=== PATIENT | female | born 1945 | race African-American/Black ===

== ENCOUNTER 2016-06-25 04:43 | Observation (INO) | payer MEDICARE, OTHER ==
[2016-06-25] VITALS (7 sets, daily range): BP systolic 125–160; BP diastolic 65–93; PULSE 60–97; RESP 16–20; TEMP 97.9–98.6; O2SAT 96–99
[~2016-06-25] VITALS: Ht 170.2 cm; Wt 100.0 kg
[~2016-06-25 04:43] MED LIST: 1-ME1LIQ PO; DICL75 PO; FURO1TAB93 PO; GABA600T PO; HYDR-3533 PO; IBUP800 PO; PERC5TAB12 PO; POTA1TAB4 PO; REST30CA PO; SIMV40 PO; TYLE3 PO
[2016-06-25] MEDS ORDERED: REST30CA PO (05:02)
[2016-06-25] MEDS ORDERED: GABA600T PO (05:02)
[2016-06-25] MEDS ORDERED: FURO1TAB60 PO (05:02)
[2016-06-25] MEDS ORDERED: SIMV40TA PO (05:02)
[2016-06-25] MEDS ORDERED: ACET300T2 PO (05:02)
[2016-06-25] MEDS ORDERED: POTA1TAB4 PO (05:02)
[2016-06-25] MEDS ORDERED: predniSONE 20 MG TAB PO ONE (05:45)
[2016-06-25] MEDS ORDERED: SODIUM CHLORIDE 0.9% FLUSH 10 ML FLUSH IV FLUSH PRN ×2 (05:45→09:30)
[2016-06-25] MEDS ORDERED: diphenhydrAMINE HCL 50 MG/ML VIAL IVP ONE (05:45)
[2016-06-25] MEDS ORDERED: FAMOTIDINE 20 MG/2 ML VIAL IV PUSH ONE (05:45)
--- NOTE | 2016-06-25 05:49 | PD ---
HPI Chief Complaint: Allergic/Adverse Reaction Time Seen by Provider: 05:43 Travel History International Travel<30 days: No Contact w/Intl Traveler<30days: No Traveled to known affect area: No History of Present Illness HPI 71yo F with PMH of breast CA s/p chemo and follows with Dr. Reed presents to the ED with periorbital swelling for 2 days. States prior to that, she spray febreeze in the room and thinks the febreeze touched her face. States rash started in her face day after and it is more itchy than painful. Denies any fever, tongue or lip swelling, chest pain, sob, n/v, abdominal pain, focal weakness or numbness. PFSH Past Medical History Asthma: Yes Cancer: Yes ( BREAST CANCER) Cardiovascular Problems: Yes Chemotherapy: Yes Diabetes: No Diminished Hearing: No Endocrine: No Gastrointestinal Disorders: Yes (REFLUX) Genitourinary: No Hepatitis: No Hiatal Hernia: No Hypertension: Yes Immune Disorder: No Musculoskeletal: Yes Neurologic: No Psychiatric: No Reproductive: No Respiratory: Yes (ASTHMA) Thyroid Disease: No Past Surgical History Abdominal Surgery: Yes (HYSTERECTOMY) AICD: No Ear Surgery: No Endocrine Surgery: No Eye Surgery: Yes (CATARACTS) Genitourinary Surgery: No Gynecologic Surgery: No Joint Replacement: No Mastectomy: Yes (BILAT) Neurologic Surgery: No Oral Surgery: No Pacemaker: No Thoracic Surgery: Yes (BILATERAL MASECTOMY) Other Surgery: Yes Social History Alcohol Use: No Tobacco Use: No (quit 2010) Substance Use: No Allergies-Medications (Allergen,Severity, Reaction): Coded Allergies: EDGARD Inhibitors (Verified Allergy, Severe, 06/25/16) Angioedema Levaquin (Verified Allergy, Unknown, 06/25/16) Penicillin (Verified Allergy, Unknown, 06/25/16) Percocet (Verified Allergy, Unknown, HIVES, 06/25/16) Uncoded Allergies: quinolon (Allergy, Unknown, 05/11/15) Reported Meds & Prescriptions Reported Meds & Active Scripts Active Reported Restoril (Temazepam) 30 Mg Cap 30 Mg PO HS PRN Simvastatin 40 Mg Tab 40 Mg PO HS K-Tab (Potassium Chloride) 20 Meq Tab 20 Meq PO DAILY Gabapentin 600 Mg Tab 600 Mg PO BID Lasix (Furosemide) 40 Mg Tab 40 Mg PO DAILY Acetaminophen-Codeine 300-30 mg Tab 1 Tab PO Q4H PRN Review of Systems Except as stated in HPI: all other systems reviewed are Neg Physical Exam Narrative GENERAL: 71yo F not in distress. FACE: +Edema to right face. Dry, scaling rash that looks like desquamation on right face and chin. There is also clear discharge, weeping. HEAD: Atraumatic. Normocephalic. EYES: Periorbital edema. No erythema. Right pupil cataract surgery. Left pupil reactive to light. EOMI. No pain with eye movement. ENT: Mouth: No oral mucosa. Uvula midline and not edematous. NECK: Trachea midline. No JVD. CARDIOVASCULAR: Regular rate and rhythm. No murmur appreciated. RESPIRATORY: No accessory muscle use. Clear to auscultation. Breath sounds equal bilaterally. GASTROINTESTINAL: Abdomen soft, non-tender, nondistended. MUSCULOSKELETAL: No obvious deformities. No clubbing. No cyanosis. No edema. NEUROLOGICAL: Awake and alert. No obvious cranial nerve deficits. Motor grossly within normal limits. Normal speech. PSYCHIATRIC: Appropriate mood and affect; insight and judgment normal. Data Data Last Documented VS Vital Signs Date Time Temp Pulse Resp B/P Pulse Ox O2 Delivery O2 Flow Rate FiO2 06/25/16 07:00 65 16 160/77 96 Room Air 06/25/16 04:47 98.1 Orders Basic Metabolic Panel (Bmp) (06/25/16 05:43) Complete Blood Count With Diff (06/25/16 05:43) Diphenhydramine Inj (Benadryl Inj) (06/25/16 05:45) Prednisone (Deltasone) (06/25/16 05:45) Famotidine Inj (Pepcid Inj) (06/25/16 05:45) Sodium Chloride 0.9% Flush (Ns Flush) (06/25/16 05:45) Clindamycin Inj (Cleocin Inj) (06/25/16 07:15) Blood Culture (06/25/16 07:04) Sodium Chlorid 0.9% 500 Ml Inj (Ns 500 M (06/25/16 07:45) Admit Order (Ed Use Only) (06/25/16 07:37) Labs Laboratory Tests Test 06/25/16 06/25/16 05:43 05:55 White Blood Count 6.6 TH/MM3 Red Blood Count 3.45 MIL/MM3 Hemoglobin 9.4 GM/DL Hematocrit 28.8 % Mean Corpuscular Volume 83.5 FL Mean Corpuscular Hemoglobin 27.4 PG Mean Corpuscular Hemoglobin 32.8 % Concent Red Cell Distribution Width 18.8 % Platelet Count 450 TH/MM3 Mean Platelet Volume 7.3 FL Neutrophils (%) (Auto) 38.4 % Lymphocytes (%) (Auto) 37.8 % Monocytes (%) (Auto) 16.0 % Eosinophils (%) (Auto) 6.2 % Basophils (%) (Auto) 1.6 % Neutrophils # (Auto) 2.6 TH/MM3 Lymphocytes # (Auto) 2.5 TH/MM3 Monocytes # (Auto) 1.1 TH/MM3 Eosinophils # (Auto) 0.4 TH/MM3 Basophils # (Auto) 0.1 TH/MM3 CBC Comment AUTO DIFF Differential Comment AUTO DIFF CONFIRMED Target Cells 1+ Tear Drop Cells 1+ Ovalocytes 1+ Sodium Level 128 MEQ/L Potassium Level 4.3 MEQ/L Chloride Level 96 MEQ/L Carbon Dioxide Level 25.6 MEQ/L Anion Gap 6 MEQ/L Blood Urea Nitrogen 15 MG/DL Creatinine 0.94 MG/DL Estimat Glomerular Filtration 71 ML/MIN Rate Random Glucose 83 MG/DL Calcium Level 9.3 MG/DL [facility] Medical Decision Making Medical Screen Exam Complete: Yes Emergency Medical Condition: Yes Interpretation(s) Laboratory Tests Test 06/25/16 06/25/16 05:43 05:55 White Blood Count 6.6 TH/MM3 (4.0-11.0) Red Blood Count 3.45 MIL/MM3 (4.00-5.30) Hemoglobin 9.4 GM/DL (11.6-15.3) Hematocrit 28.8 % (35.0-46.0) Mean Corpuscular Volume 83.5 FL (80.0-100.0) Mean Corpuscular Hemoglobin 27.4 PG (27.0-34.0) Mean Corpuscular Hemoglobin 32.8 % Concent (32.0-36.0) Red Cell Distribution Width 18.8 % (11.6-17.2) Platelet Count 450 TH/MM3 (150-450) Mean Platelet Volume 7.3 FL (7.0-11.0) Neutrophils (%) (Auto) 38.4 % (16.0-70.0) Lymphocytes (%) (Auto) 37.8 % (9.0-44.0) Monocytes (%) (Auto) 16.0 % (0.0-8.0) Eosinophils (%) (Auto) 6.2 % (0.0-4.0) Basophils (%) (Auto) 1.6 % (0.0-2.0) Neutrophils # (Auto) 2.6 TH/MM3 (1.8-7.7) Lymphocytes # (Auto) 2.5 TH/MM3 (1.0-4.8) Monocytes # (Auto) 1.1 TH/MM3 (0-0.9) Eosinophils # (Auto) 0.4 TH/MM3 (0-0.4) Basophils # (Auto) 0.1 TH/MM3 (0-0.2) CBC Comment AUTO DIFF Differential Comment AUTO DIFF CONFIRMED Target Cells 1+ (NORMAL) Tear Drop Cells 1+ (NORMAL) Ovalocytes 1+ (NORMAL) Sodium Level 128 MEQ/L (136-145) Potassium Level 4.3 MEQ/L (3.5-5.1) Chloride Level 96 MEQ/L (98-107) Carbon Dioxide Level 25.6 MEQ/L (21.0-32.0) Anion Gap 6 MEQ/L (5-15) Blood Urea Nitrogen 15 MG/DL (7-18) Creatinine 0.94 MG/DL (0.50-1.00) Estimat Glomerular Filtration 71 ML/MIN (>89) Rate Random Glucose 83 MG/DL (74-106) Calcium Level 9.3 MG/DL (8.5-10.1) Differential Diagnosis Allergic reaction vs. cellulitis vs. atopic dermatitis Narrative Course 71yo with breast CA last chemo april here with right face and periorbital swelling. The periorbital swelling seems like an allergic reaction but there is some pain in right face and that may be infectious. Labs reviewed, no leukocytosis. H/H baseline. Mild hyponatremia at 128. Pt given NS IVF. Pt given diphenhydramine, prednisone, famotidine. Will cover pt with clindamycin. Pt reevaluated at bedside. Feels sleeping. Pt's face is still weeping with clear discharge and I feel that observation is indicated given how extensive the swelling is. Discussed with Dr. Villarreal and accepted to her service. Diagnosis Primary Impression: Cellulitis Qualified Code: L03.211 - Cellulitis of face Admitting Information Admitting Physician Requests: Observation Pamela Josue DO Jun 25, 2016 05:49 Pamela Josue DO Jun 25, 2016 05:49
[2016-06-25 06:05] LABS: AUTOMATED NEUTROPHIL # 2.6 TH/MM3 (1.8-7.7); BASOPHIL # 0.1 TH/MM3 (0-0.2); BASOPHIL % 1.6 % (0.0-2.0); EOSINOPHIL # 0.4 TH/MM3 (0-0.4); EOSINOPHIL % 6.2 % (0.0-4.0); HEMATOCRIT 28.8 % (35.0-46.0); LYMPH % 37.8 % (9.0-44.0); LYMPHOCYTE # 2.5 TH/MM3 (1.0-4.8); MEAN CELL VOLUME 83.5 FL (80.0-100.0); MEAN CORPUSCULAR HEMOGLOBIN 27.4 PG (27.0-34.0); MEAN CORPUSCULAR HGB CONC 32.8 % (32.0-36.0); NEUT % 38.4 % (16.0-70.0); PLATELET COUNT 450 TH/MM3 (150-450); RED BLOOD COUNT 3.45 MIL/MM3 (4.00-5.30); RED CELL DISTRIBUTION WIDTH 18.8 % (11.6-17.2); WHITE BLOOD COUNT 6.6 TH/MM3 (4.0-11.0)
[2016-06-25 06:18] LABS: HEMO FLAGS AUTO DIFF
[2016-06-25 06:25] LABS: BICARBONATE 25.6 MEQ/L (21.0-32.0); POTASSIUM 4.3 MEQ/L (3.5-5.1)
[2016-06-25 07:06] LABS: OVALOCYTES 1+ (NORMAL); SCAN/DIFF AUTO DIFF CONFIRMED; TARGET CELLS 1+ (NORMAL); TEARDROP RBCS 1+ (NORMAL)
[2016-06-25] MEDS ORDERED: CLINDAMYCIN INJ 600 MG in SODIUM CHLORIDE 0.9% INJ 100 ML IV ONE (07:15)
[2016-06-25] MEDS ORDERED: SODIUM CHLORID 0.9% 500 ML INJ 500 ML IV ONE (07:45)
[2016-06-25] MEDS ORDERED: PROCHLORPERAZINE 25 MG SUPP RECTAL PRN (09:30)
[2016-06-25] MEDS ORDERED: ONDANSETRON HCL 4 MG/2 ML VIAL IVP PRN (09:30)
[2016-06-25] MEDS ORDERED: ACETAMINOPHEN 325 MG TAB PO PRN (09:30)
[2016-06-25] MEDS ORDERED: TEMAZEPAM 15 MG CAP PO PRN (09:30)
[2016-06-25] MEDS ORDERED: TEMAZEPAM 30 MG PO PRN (09:30)
[2016-06-25] MEDS ORDERED: NALOXONE HCL 0.4 MG/ML AMP IV PRN (09:30)
[2016-06-25] MEDS: DOCUSATE SODIUM 100 MG CAP PO SCH ×2 (09:58→20:30)
[2016-06-25] MEDS: POTASSIUM CHLORIDE 20 MEQ CONTROLLED RELEASE TAB PO SCH (09:58)
[2016-06-25] MEDS: FUROSEMIDE 40 MG TAB PO SCH (09:58)
[2016-06-25] MEDS: SODIUM CHLOR 0.45% 1000 ML INJ 1,000 ML IV SCH (09:59)
[2016-06-25] MEDS: CLINDAMYCIN INJ 600 MG in SODIUM CHLORIDE 0.9% INJ 100 ML IV SCH ×3 (10:00→22:28)
[2016-06-25] MEDS: ENOXAPARIN SODIUM 40 MG/0.4 ML SYRINGE SQ SCH (10:05)
--- NOTE | 2016-06-25 11:47 | MH ---
DATE OF ADMISSION: 06/25/2016 ATTENDING PHYSICIAN: Cecy Villarreal MD CHIEF COMPLAINT: Swelling of the right side of the face. HISTORY OF PRESENT ILLNESS: The patient is a very pleasant 71-year-old -[place] female who presented to the emergency room with acute swelling of the right side of the face. Per aptient she had scratched her face few hours ago before and then she started noticing that the right side of her face has been gradually swelling and also has started oozing. She denies any shortness of breath. No chest pain. No blurring of vision. No wheezing. The patient does have a history of breast cancer for which she is under the care of Dr. Reed. Per patient, the rash is very itchy and painful. PAST MEDICAL HISTORY: Her past medical history is significant for: 1. Breast cancer. 2. Acid reflux. 3. Coronary artery disease. 4. Hypertension. 5. Asthma. PAST SURGICAL HISTORY: 1. Hysterectomy. 2. Cataract surgery. 3. Bilateral mastectomy. ALLERGIES: 1. EDGARD INHIBITORS. 2. LEVAQUIN. 3. PENICILLIN. 4. PERCOCET. SOCIAL HISTORY: Quit smoking in 2010. Denies alcohol or tobacco use. FAMILY HISTORY: Significant for hypertension and coronary artery disease. ACTIVE MEDICATIONS: 1. Temazepam. 2. Simvastatin. 3. Potassium chloride. 4. Gabapentin. 5. Furosemide. 6. Acetaminophen / codeine. REVIEW OF SYSTEMS: GENERAL: Denies any weakness. RESPIRATORY: Denies any shortness of breath or wheezing. CARDIOVASCULAR: Denies any chest pain or palpitations. GASTROINTESTINAL: Denies any abdominal pain, nausea or vomiting, or diarrhea. MUSCULOSKELETAL: No arthralgias. ENDOCRINE: No diabetes. NEUROLOGICAL: No seizures. PHYSICAL EXAMINATION: GENERAL: A 71-year-old female in no acute distress lying in bed comfortably. VITAL SIGNS: Blood pressure is 160/74, temperature is 98.1, pulse is 97, respirations are 16, pulse oximetry is 98% on room air. HEAD, EYES, EARS, NOSE, THROAT: Face with 2+ edema to the right face. Dry scaling rash that looks like desquamation on the right face and chin. There is also a clear discharge weeping. Head is normocephalic and atraumatic. Pupils are equal, round and reactive to light and accommodation. Extraocular movements are intact. No pain with eye movement. Oral mucosa is moist. Uvula is midline. Not edematous. Trachea is midline. NECK: No jugular venous distention. CARDIOVASCULAR: S1 and S2 heard. Regular rate and rhythm. No murmur. No gallop. RESPIRATORY: Lungs are clear to auscultation bilaterally. No rhonchi or wheezes. GASTROINTESTINAL: The abdomen is soft, nontender and nondistended. Bowel sounds heard in all the four quadrants. MUSCULOSKELETAL: No obvious deformities. No cyanosis, clubbing or edema. NEUROLOGICAL: The patient is awake and alert. No obvious cranial nerve deficits. PSYCHIATRIC: Appropriate mood and affect, insight and judgment normal. LABORATORY DATA: Labs done show a white blood cell count of 6.6, hemoglobin 9.4, hematocrit 28.8, platelet count 450,000. Potassium 4.3, sodium is 128. DIAGNOSTIC IMPRESSION: 1. Facial swelling, right side. Allergic reaction versus cellulitis versus atopic dermatitis. 2. Hyponatremia. 3. Hypertension. 4. History of breast cancer. PLAN: 1. Will admit the patient under observation. 2. Start the patient on IV fluids. 3. Start the patient on clindamycin. 4. Start the patient on Solu-Medrol. 5. Start the patient on Benadryl for itching. 6. Will continue the home medications as appropriate. 7. Monitor labs/vitals closely. Further management depends upon the hospital course. Will monitor the patient closely during the hospital stay. IVANIA
[2016-06-25] MEDS: ACETAMINOPHEN/CODEINE 300 MG/30 MG TAB PO PRN (12:26)
[2016-06-25] MEDS: diphenhydrAMINE HCL 25 MG CAP PO PRN (16:37)
[2016-06-25] MEDS: GABAPENTIN 300 MG CAP PO SCH (20:30)
[2016-06-25] MEDS: methylPREDNISolone SOD SUCC 125 MG/2 ML VIAL IV PUSH SCH (20:30)
[2016-06-25] MEDS: SODIUM CHLORIDE 0.9% FLUSH 10 ML FLUSH IV FLUSH SCH (20:31)
[2016-06-25] MEDS: FAMOTIDINE 20 MG/2 ML VIAL IV PUSH SCH (20:45)
[2016-06-25] MEDS ORDERED: PRAVASTATIN SOD 80 MG TAB PO SCH (21:00)
[2016-06-26] VITALS: BP 148/67; PULSE 66; RESP 19; TEMP 98.3; O2SAT 99
[2016-06-26 04:00] VITALS: BP 162/67; PULSE 63; RESP 17; TEMP 98.2; O2SAT 98
[2016-06-26] MEDS: SODIUM CHLOR 0.45% 1000 ML INJ 1,000 ML IV SCH ×2 (04:51→12:00)
[2016-06-26] MEDS: CLINDAMYCIN INJ 600 MG in SODIUM CHLORIDE 0.9% INJ 100 ML IV SCH ×2 (04:51→10:00)
[2016-06-26] MEDS: ACETAMINOPHEN/CODEINE 300 MG/30 MG TAB PO PRN ×2 (06:44→06:48)
[2016-06-26] MEDS: FAMOTIDINE 20 MG/2 ML VIAL IV PUSH SCH (06:44)
[2016-06-26 06:46] LABS: AUTOMATED NEUTROPHIL # 3.9 TH/MM3 (1.8-7.7); BASOPHIL % 0.5 % (0.0-2.0); HEMATOCRIT 29.3 % (35.0-46.0); HEMO FLAGS DIFF FINAL; LYMPH % 24.8 % (9.0-44.0); LYMPHOCYTE # 1.4 TH/MM3 (1.0-4.8); MEAN CELL VOLUME 83.9 FL (80.0-100.0); MEAN CORPUSCULAR HEMOGLOBIN 27.3 PG (27.0-34.0); MEAN CORPUSCULAR HGB CONC 32.6 % (32.0-36.0); MONO % 6.2 % (0.0-8.0); NEUT % 68.5 % (16.0-70.0); PLATELET COUNT 431 TH/MM3 (150-450); RED BLOOD COUNT 3.49 MIL/MM3 (4.00-5.30); RED CELL DISTRIBUTION WIDTH 18.5 % (11.6-17.2); WHITE BLOOD COUNT 5.7 TH/MM3 (4.0-11.0)
[2016-06-26 07:09] LABS: BICARBONATE 24.4 MEQ/L (21.0-32.0); POTASSIUM 3.6 MEQ/L (3.5-5.1)
[2016-06-26] MEDS: diphenhydrAMINE HCL 25 MG CAP PO PRN (07:39)
[2016-06-26 07:40] VITALS: BP 145/63; PULSE 75; RESP 16; TEMP 98; O2SAT 100
[2016-06-26] MEDS: FUROSEMIDE 40 MG TAB PO SCH (08:31)
[2016-06-26] MEDS: POTASSIUM CHLORIDE 20 MEQ CONTROLLED RELEASE TAB PO SCH (08:31)
[2016-06-26] MEDS: methylPREDNISolone SOD SUCC 125 MG/2 ML VIAL IV PUSH SCH (08:32)
[2016-06-26] MEDS: GABAPENTIN 300 MG CAP PO SCH (08:34)
[2016-06-26] MEDS: DOCUSATE SODIUM 100 MG CAP PO SCH (08:35)
[2016-06-26] MEDS: SODIUM CHLORIDE 0.9% FLUSH 10 ML FLUSH IV FLUSH SCH (08:35)
[2016-06-26] MEDS: ENOXAPARIN SODIUM 40 MG/0.4 ML SYRINGE SQ SCH (10:00)
--- NOTE | 2016-06-26 10:38 | HHI.PR ---
Subjective Remarks 71yr old female seen and examined today. Decreased right side facial swelling. no cp/sob/nvd/fever. Patient wants to go home. Objective Objective Results - Vital Signs Date Time Temp Pulse Resp B/P Pulse Ox O2 Delivery O2 Flow Rate FiO2 06/26/16 07:40 98.0 75 16 145/63 100 06/26/16 04:00 98.2 63 17 162/67 98 06/26/16 00:00 98.3 66 19 148/67 99 06/25/16 20:00 98.6 72 20 125/65 98 06/25/16 15:38 97.9 70 16 141/69 99 06/25/16 12:01 97.9 60 18 160/78 98 06/25/16 11:11 66 16 154/79 98 Room Air I/O 06/25/16 06/25/16 06/25/16 06/26/16 06/26/16 06/26/16 07:00 15:00 23:00 07:00 15:00 23:00 Intake Total 240 ml Balance 240 ml Intake Oral 240 ml # Voids 1 1 # Bowel Movements 1 Result Diagram: 06/26/16 0620 06/26/16 0620 Other Results Laboratory Tests Test 06/26/16 06:20 White Blood Count 5.7 Red Blood Count 3.49 Hemoglobin 9.5 Hematocrit 29.3 Mean Corpuscular Volume 83.9 Mean Corpuscular Hemoglobin 27.3 Mean Corpuscular Hemoglobin 32.6 Concent Red Cell Distribution Width 18.5 Platelet Count 431 Mean Platelet Volume 7.0 Neutrophils (%) (Auto) 68.5 Lymphocytes (%) (Auto) 24.8 Monocytes (%) (Auto) 6.2 Eosinophils (%) (Auto) 0.0 Basophils (%) (Auto) 0.5 Neutrophils # (Auto) 3.9 Lymphocytes # (Auto) 1.4 Monocytes # (Auto) 0.3 Eosinophils # (Auto) 0.0 Basophils # (Auto) 0.0 CBC Comment DIFF FINAL Differential Comment Sodium Level 140 Potassium Level 3.6 Chloride Level 109 Carbon Dioxide Level 24.4 Anion Gap 7 Blood Urea Nitrogen 13 Creatinine 0.66 Estimat Glomerular Filtration 107 Rate Random Glucose 123 Calcium Level 9.0 Date/Time Procedure Status Source Growth 06/25/16 07:35 Aerobic Blood Culture Received Blood Peripheral Pending 06/25/16 07:35 Anaerobic Blood Culture Received Blood Peripheral Pending ROS General: No: Fatigue, Weakness, Other HEENT: No: Sore Throat, Dysphagia, Other Cardiac: No: Chest Pain, Edema, Palpitations, Other Pulmonary: No: Cough, SOB, Wheezing, Other GI: No: Abdominal Pain, BM, Diarrhea, N/V, Other /TRIBAL DELEGATE: No: Dysuria, Urgency, Other Neuro/MS: No: Lightheaded, Confusion, Other Psych: No: Anxiety, Depression, Other Skin: Itching, Rash, Other (right side facial swelling.) Physical Exam Physical Exam PHYSICAL EXAMINATION GENERAL: This is a well-developed, well-nourished female who appears to be in no acute distress. She is alert and awake. HEAD: Normocephalic without any lesion or mass noted. Facial features appear symmetric. EYES: Perrla, Normal eye movement, no icterus. OROPHARYNGEAL: Oropharynx without erythema or edema. MOUTH/THROAT: Tongue midline Buccal mucosa is moist NECK: Supple. CARDIAC: Regular rhythm, regular rate, S1 and S2 are heard. LUNGS: Clear to auscultation bilaterally. ABDOMEN: Soft, nontender, no organomegaly or masses. Bowel sounds are heard in all four quadrants. No rebound. No guarding. EXTREMITIES: No CCE. NEUROLOGICAL: Patient mood and affect appropriate. SKIN: Swelling on right side of face: PSYCH: Mood and affect appropriate A/P Assessment and Plan Assessment/plan: 1. Facial swelling, right side. Allergic reaction versus cellulitis versus atopic dermatitis. 2. Hyponatremia. 3. Hypertension. 4. History of breast cancer. PLAN: Clindamycin/steroids/benadryl. Patient is doing better. Right side facial swelling is improving. Will dc to home today on po abx/steroids. Follow-up with pcp in 1 week. Cecy Villarreal MD Jun 26, 2016 10:38
[2016-06-26 11:15] VITALS: BP 166/71; PULSE 60; RESP 16; TEMP 98; O2SAT 97
[2016-06-26] MEDS ORDERED: PRED10PA PO (11:15)
[2016-06-26] MEDS ORDERED: CLIN1CAP6 PO (11:15)
[2016-06-26] MEDS ORDERED: TRIAM.1%T TOPICAL (11:16)
--- NOTE | 2016-07-31 20:55 | MD ---
cc: THUY BURKETT MD ADMISSION DATE: 06/25/2016 DISCHARGE DATE: 06/26/2016 cc: THUY BURKETT MD DATE OF 1945 DATE OF ADMISSION 06/25/2016 DATE OF DISCHARGE 06/26/[address] Thuy Burkett ADMISSION DIAGNOSES 1. Right facial swelling. 2. Right facial cellulitis. 3. Hyponatremia. 4. Hypertension. 5. History of breast cancer. DISCHARGE DIAGNOSES 1. Cellulitis of right side of the face. 2. Allergic reaction. 3. Hyponatremia. 4. Hypertension. 5. History of breast cancer. HOSPITAL COURSE The patient is a very pleasant 71-year-old -[place] female who presented to the ER with acute swelling of the right side of the face on 06/25/2016. Per the patient she had scratched her face a few hours ago before presentation to the ER and then she noticed that the right side of the face had been gradually swelling and also had started oozing. The patient denied any shortness of breath or dysphagia. Denied any chest pain or palpitations. Denies any blurred vision or weakness. The patient does have a history of breast cancer for which she is under the of Dr. Reed. Per the patient the rash is very itchy and painful. PHYSICAL EXAMINATION HEENT: On examination the patient was noted to have 2+ edema to the right side of the face, dry scaly rash that looks like desquamation on the right face and chin. There was also a clear discharge weeping. The pupils were equal, round and reactive to light. Extraocular movements were intact. Oral mucosa was moist. Uvula was midline. There was no edema noted and trachea was midline. Because of her symptomatology the patient was admitted under observation status. She was started on IV fluids. She was started on Clindamycin and Solu-Medrol. Was given Benadryl for itching. Her home medications were continued as appropriate. LABORATORY DATA Labs done on 06/25/2016 showed WBC of 6.6, hemoglobin of 9.4, hematocrit 28.8, platelets were 450,000. CBC was repeated again on 06/26/2016 which showed a hemoglobin of 9.5, hematocrit 29.3 and platelets were 431,000. Potassium was 3.6, BUN was 13 and creatinine was 0.66. Her sodium on 06/25/2016 was 128 as it was replaced with IV fluids on 06/26/2016 it was 140. On 06/26/2016 the patient was reexamined. The swelling on the right side of the face was decreased. She was asymptomatic. Her blood pressure was 145/63, pulse oximetry 100%. Respiratory rate 16. Pulse was 75. Temperature was 98. As the patient was clinically and hemodynamically stable, she was discharged home. DISCHARGE CONDITION Stable. DISCHARGE DISPOSITION Home. DISCHARGE MEDICATIONS 1. Clindamycin 300 milligrams p.o. q.6h, #28. 2. Medrol Dosepak 10 milligrams erika, #1. Use as directed. 3. Triamcinolone topical cream 0.1% ointment apply to the affected area twice a day for 14 days. Continue medications: 1. Tylenol No. 3. 2. Lasix. 3. Gabapentin. 4. Potassium chloride. 5. Simvastatin. 6. Temazepam. DISCHARGE FOLLOWUP Follow up with primary care physician in one week. Thuy Burkett MD SR/TONY /7:59 PM /8:33 PM Thuy Burkett MD SR/TONY /7:59 PM /8:33 PM
== END 2016-06-26 12:43 | disposition home or self-care (01) ==
LOC: NEPC 04:43 → NEDA 07:39 → NEPGCP 11:31
PROVIDERS: ADMIT Family Medicine; ATTEND Family Medicine
DX: R22.0 Localized swelling, mass and lump, head (principal); E87.1 Hypo-osmolality and hyponatremia; I10 Essential (primary) hypertension; C50.919 Malignant neoplasm of unspecified site of unspecified female breast; I25.10 Atherosclerotic heart disease of native coronary artery without angina pectoris; J45.909 Unspecified asthma, uncomplicated; K21.9 Gastro-esophageal reflux disease without esophagitis; Z90.13 Acquired absence of bilateral breasts and nipples; Z92.21 Personal history of antineoplastic chemotherapy; Z87.891 Personal history of nicotine dependence; Z88.1 Allergy status to other antibiotic agents; Z88.5 Allergy status to narcotic agent; Z88.0 Allergy status to penicillin; Z88.8 Allergy status to other drugs, medicaments and biological substances
CPT/HCPCS: 80048; 85025; 87040; 96374; 96375; 99284; G0378; J1200; J1650; J2930; J7040; J7512

== ENCOUNTER → 2016-08-04 | Outpatient (CLI) | payer MEDICARE, OTHER ==
[~2016-08-04] MED LIST changes: -1-ME1LIQ PO; +ACET300T2 PO; +CLIN1CAP6 PO; -DICL75 PO; +FURO1TAB60 PO; -FURO1TAB93 PO; -HYDR-3533 PO; -IBUP800 PO; -PERC5TAB12 PO; +PRED10PA PO; -SIMV40 PO; +SIMV40TA PO; +TRIAM.1%T TOPICAL; -TYLE3 PO
[2016-08-04 09:54] LABS: HEMATOCRIT 32.9 % (35.0-46.0); MEAN CELL VOLUME 83.5 FL (80.0-100.0); MEAN CORPUSCULAR HEMOGLOBIN 28.2 PG (27.0-34.0); MEAN CORPUSCULAR HGB CONC 33.7 % (32.0-36.0); PLATELET COUNT 385 TH/MM3 (150-450); RED BLOOD COUNT 3.94 MIL/MM3 (4.00-5.30); RED CELL DISTRIBUTION WIDTH 16.7 % (11.6-17.2); REVIEW FLAG FINAL; WHITE BLOOD COUNT 6.4 TH/MM3 (4.0-11.0)
[2016-08-04 10:17] LABS: ANION GAP 8 MEQ/L (5-15); AST (GOT) 19 U/L (15-37); BICARBONATE 25.8 MEQ/L (21.0-32.0); BLOOD UREA NITROGEN 11 MG/DL (7-18); CHLORIDE 103 MEQ/L (98-107); GLOMERULAR FILTRATION RATE 75 ML/MIN (>89); GLUCOSE,FASTING 86 MG/DL (74-99); SODIUM (NA) 137 MEQ/L (136-145)
[2016-08-04 10:21] LABS: ALKALINE PHOSPHATASE 195 U/L (45-117); ALT (GPT) 25 U/L (10-53); HDL CHOLESTEROL 45.7 MG/DL (40.0-60.0); LDL CHOLESTEROL 105 MG/DL (0-99); TOTAL BILIRUBIN ADULT 0.3 MG/DL (0.2-1.0)
== END ==
LOC: PLAB 07:10
PROVIDERS: ATTEND Family Medicine
DX: F51.09 Other insomnia not due to a substance or known physiological condition (principal); K21.9 Gastro-esophageal reflux disease without esophagitis; E78.5 Hyperlipidemia, unspecified; R60.0 Localized edema; M54.9 Dorsalgia, unspecified; J44.9 Chronic obstructive pulmonary disease, unspecified; R73.9 Hyperglycemia, unspecified; I10 Essential (primary) hypertension; C50.919 Malignant neoplasm of unspecified site of unspecified female breast; C78.7 Secondary malignant neoplasm of liver and intrahepatic bile duct; C78.00 Secondary malignant neoplasm of unspecified lung
CPT/HCPCS: 36415; 80053; 80061; 85027

== ENCOUNTER 2016-11-14 14:40 | Inpatient (IN) | payer OTHER, MEDICARE ==
[~2016-11-14] VITALS: Ht 170.2 cm; Wt 71.0 kg
[2016-11-14] VITALS (9 sets, daily range): BP systolic 134–178; BP diastolic 72–81; PULSE 72–96; RESP 20–28; TEMP 98.3–98.9; O2SAT 87–99
--- NOTE | 2016-11-14 14:49 | PD ---
HPI Chief Complaint: respiratory distress Time Seen by Provider: 14:49 Travel History International Travel<30 days: No Contact w/Intl Traveler<30days: No Traveled to known affect area: No History of Present Illness HPI 71-year-old female came to the emergency room brought by her brother with progressive worsening of her shortness of breath for past 1 month however got really worse in past 2 days. Patient was saturating in high 80s and tachypnea daily short of breath in triage. She was brought in emergently. Oxygen saturation was 87-88% on room air at rest. Patient normally does not require oxygen at home. She has history of breast cancer and has finished with her chemotherapy and radiation therapy in the past. She was in distress and unable to give a lot of history. She is complaining of some back pain which is seems to be chronic. Heart rate and blood pressure are stable. [facility] Past Medical History Narrative Medical List of her past medical, surgical, social and family history is reviewed from the nursing note. Asthma: Yes Cancer: Yes ( BREAST CANCER) Cardiovascular Problems: Yes Chemotherapy: Yes Diabetes: No Diminished Hearing: No Endocrine: No Gastrointestinal Disorders: Yes (REFLUX) Genitourinary: No Hepatitis: No Hiatal Hernia: No Hypertension: Yes Immune Disorder: No Musculoskeletal: Yes Neurologic: No Psychiatric: No Reproductive: No Respiratory: Yes (ASTHMA) Thyroid Disease: No Past Surgical History Abdominal Surgery: Yes (HYSTERECTOMY) AICD: No Ear Surgery: No Endocrine Surgery: No Eye Surgery: Yes (CATARACTS) Genitourinary Surgery: No Gynecologic Surgery: No Joint Replacement: No Mastectomy: Yes (BILAT) Neurologic Surgery: No Oral Surgery: No Pacemaker: No Thoracic Surgery: Yes (BILATERAL MASECTOMY) Other Surgery: Yes Social History Alcohol Use: No Tobacco Use: No (quit 2010) Substance Use: No Allergies-Medications (Allergen,Severity, Reaction): Coded Allergies: benazepril (Unverified Allergy, Severe, 11/14/16) Angioedema captopril (Unverified Allergy, Severe, 11/14/16) Angioedema enalaprilat (Unverified Allergy, Severe, 11/14/16) Angioedema fosinopril (Unverified Allergy, Severe, 11/14/16) Angioedema lisinopril (Unverified Allergy, Severe, 11/14/16) Angioedema quinapril (Unverified Allergy, Severe, 11/14/16) Angioedema acetaminophen (Unverified Allergy, Unknown, HIVES, 11/14/16) levofloxacin (Unverified Allergy, Unknown, 11/14/16) oxycodone (Unverified Allergy, Unknown, HIVES, 11/14/16) penicillin G (Unverified Allergy, Unknown, 11/14/16) Uncoded Allergies: quinolon (Allergy, Unknown, 05/11/15) Comments List of her allergies reviewed from the nursing note. Reported Meds & Prescriptions Reported Meds & Active Scripts Active Triamcinolone Topical (Triamcinolone Acetonide) 0.1 % Oint 1 Applic TOPICAL BID 14 Days Prednisone (21) 10 mg tab Dose Pack (Prednisone) 10 Mg Pack 10 Mg PO DIRECTED 7 Days Clindamycin (Clindamycin HCl) 300 Mg Cap 300 Mg PO Q6H Reported Restoril (Temazepam) 30 Mg Cap 30 Mg PO HS PRN Simvastatin 40 Mg Tab 40 Mg PO HS K-Tab (Potassium Chloride) 20 Meq Tab 20 Meq PO DAILY Gabapentin 600 Mg Tab 600 Mg PO BID Lasix (Furosemide) 40 Mg Tab 40 Mg PO DAILY Acetaminophen-Codeine 300-30 mg Tab 1 Tab PO Q4H PRN Narrative Medication List of her home medications reviewed from the nursing note. Review of Systems Except as stated in HPI: all other systems reviewed are Neg Physical Exam Narrative GENERAL: Awake, alert, elderly, looks older than her age, significant distress, anxious SKIN: Focused skin assessment warm/dry. HEAD: Atraumatic. Normocephalic. EYES: Pupils equal and round. No scleral icterus. No injection or drainage. ENT: No nasal bleeding or discharge. Mucous membranes pink and moist. NECK: Trachea midline. No JVD. CARDIOVASCULAR: Regular rate and rhythm. No murmur appreciated. RESPIRATORY: Significant respiratory distress. Diminished air entry on the entire left side. Accessory muscles used during respiration. Bilateral mastectomy GASTROINTESTINAL: Abdomen soft, non-tender, nondistended. Hepatic and splenic margins not palpable. MUSCULOSKELETAL: No obvious deformities. No clubbing. No cyanosis. Left upper extremity edema from lymphedema from the mastectomy NEUROLOGICAL: Awake and alert. No obvious cranial nerve deficits. Motor grossly within normal limits. Normal speech. PSYCHIATRIC: Appropriate mood and affect; insight and judgment normal. Data Data Last Documented VS Vital Signs Date Time Temp Pulse Resp B/P (MAP) Pulse Ox O2 Delivery O2 Flow Rate FiO2 11/14/16 16:00 72 22 150/74 (99) 95 Nasal Cannula 2.00 11/14/16 14:43 98.3 Orders Orders Complete Blood Count With Diff (11/14/16 15:01) Comprehensive Metabolic Panel (11/14/16 15:01) B-Type Natriuretic Peptide (11/14/16 15:01) Magnesium (Mg) (11/14/16 15:01) Troponin I (11/14/16 15:01) Arterial Blood Gas (Abg) (11/14/16 15:01) Blood Culture (11/14/16 15:01) Iv Access Insert/Monitor (11/14/16 15:) Electrocardiogram (11/14/16 15:) Ecg Monitoring (11/14/16 15:) Oximetry (11/14/16 15:01) Oxygen Administration (11/14/16 15:01) Chest, Single Ap (11/14/16 15:01) Sodium Chloride 0.9% Flush (Ns Flush) (11/14/16 15:15) Albuterol Neb (Albuterol Neb) (11/14/16 15:15) Lactic Acid (11/14/16 15:43) Aztreonam Inj (Azactam Inj) (11/14/16 16:30) Vancomycin Inj (Vancomycin Inj) (11/14/16 16:30) Amylase, Pleural Fluid (11/14/16 16:20) Glucose, Pleural Fluid (11/14/16 16:20) Ldh, Pleural Fluid (11/14/16 16:20) Pleural Fluid Ph (11/14/16 16:20) Pleural Fl Cell Count + Diff (11/14/16 16:20) Fluid Culture And Gram Stain (11/14/16 16:20) Fluid Afb Culture And Stain (11/14/16 16:20) Fluid Fungus Culture And Stain (11/14/16 16:20) Cytology Request For Service (11/14/16 16:20) Total Protein, Pleural Fluid (11/14/16 16:20) Prothrombin Time / Inr (Pt) (11/14/16 16:31) Admit Order (Ed Use Only) (11/14/16 16:40) Labs Laboratory Tests Test 11/14/16 15:13 11/14/16 15:40 11/14/16 15:50 11/14/16 16:30 Blood Gas Puncture Site RT RADIAL Blood Gas Patient Temperature 98.6 Blood Gas HCO3 30 mmol/L Blood Gas Base Excess 6.0 mmol/L Blood Gas Oxygen Saturation 94 % Arterial Blood pH 7.47 Arterial Blood Partial Pressure CO2 41 mmHg Arterial Blood Partial Pressure O2 73 mmHG Arterial Blood Oxygen Content 15.2 Vol % Arterial Blood Carboxyhemoglobin 1.5 % Arterial Blood Methemoglobin 0.6 % Blood Gas Hemoglobin 11.5 G/DL Oxygen Delivery Device NASAL CANNULA Blood Gas Liter Flow 2 L/M White Blood Count 12.1 TH/MM3 Red Blood Count 3.92 MIL/MM3 Hemoglobin 10.7 GM/DL Hematocrit 33.5 % Mean Corpuscular Volume 85.3 FL Mean Corpuscular Hemoglobin 27.2 PG Mean Corpuscular Hemoglobin Concent 31.9 % Red Cell Distribution Width 17.3 % Platelet Count 479 TH/MM3 Mean Platelet Volume 6.8 FL Neutrophils (%) (Auto) 75.7 % Lymphocytes (%) (Auto) 13.2 % Monocytes (%) (Auto) 10.2 % Eosinophils (%) (Auto) 0.2 % Basophils (%) (Auto) 0.7 % Neutrophils # (Auto) 9.2 TH/MM3 Lymphocytes # (Auto) 1.6 TH/MM3 Monocytes # (Auto) 1.2 TH/MM3 Eosinophils # (Auto) 0.0 TH/MM3 Basophils # (Auto) 0.1 TH/MM3 CBC Comment DIFF FINAL Differential Comment Blood Urea Nitrogen 8 MG/DL Creatinine 0.52 MG/DL Random Glucose 94 MG/DL Total Protein 8.0 GM/DL Albumin 3.0 GM/DL Calcium Level 9.4 MG/DL Magnesium Level 2.1 MG/DL Alkaline Phosphatase 183 U/L Aspartate Amino Transf (AST/SGOT) 24 U/L Alanine Aminotransferase (ALT/SGPT) 27 U/L Total Bilirubin 0.4 MG/DL Sodium Level 139 MEQ/L Potassium Level 2.7 MEQ/L Chloride Level 102 MEQ/L Carbon Dioxide Level 29.4 MEQ/L Anion Gap 8 MEQ/L Estimat Glomerular Filtration Rate 141 ML/MIN Phosphorus Level 2.3 MG/DL Troponin I LESS THAN 0.02 NG/ML B-Type Natriuretic Peptide 25 PG/ML Lactic Acid Level 1.3 mmol/L Prothrombin Time 11.4 SEC Prothromb Time International Ratio 1.0 RATIO MDM Medical Decision Making Medical Screen Exam Complete: Yes Emergency Medical Condition: Yes Medical Record Reviewed: Yes Interpretation(s) Twelve-lead EKG was reviewed by me. Normal sinus rhythm, normal axis, multiple PACs, nonspecific ST-T wave changes. Heart rate of 81 bpm. Differential Diagnosis Pneumonia, pleural effusion, metastases, lung cancer Narrative Course 4:33 PM CBC shows some leukocytosis and I have covered her with antibiotic mainly Azactam and vancomycin. Chest x-ray shows dense white out on the left side which probably is pleural effusion. I have ordered ultrasound guided pleurocentesis. There is a CT pulmonary angiogram pending as well. In my opinion given patient's condition she should be admitted to the ICU. After the fluid is being drained out there is a high risk of pulmonary edema from the pleurocentesis. I discussed the case with the ticket attendant who has accepted her. CMP is still pending Critical Care Narrative Aggregate critical care time was 60 minutes. Time to perform other separately billable procedures was not included in the critical care time. My time did not include minutes spent treating any other patients simultaneously or on activities that did not directly contribute to the patient's treatment. The services I provided to this patient were to treat and/or prevent clinically significant deterioration that could result in: Respiratory distress, sepsis with antibiotics as per sepsis protocol, large pleural effusion I provided critical care services requiring my management, as noted below: Chart data review, documentation time, medication orders and management, vital sign assessments/reviewing monitor data, ordering and reviewing lab tests, ordering and interpreting/reviewing x-rays and diagnostic studies, care of the patient and discussion of the patient with the admitting physicians. Procedures EKG Prior to Arrival: No Physician Communication Physician Communication Dr. Arauz Diagnosis Primary Impression: Respiratory distress Additional Impressions: Pleural effusion possible pneumonia Hypoxia Admitting Information Admitting Physician Requests: Yoli Payton MD Nov 14, 2016 14:49
[2016-11-14] MEDS ORDERED: SODIUM CHLORIDE 0.9% FLUSH 10 ML FLUSH IVF PRN (15:15)
[2016-11-14] MEDS: RESP: ALBUTEROL 2.5 MG/3 ML NEB (SCH) INH ×2 (15:15→15:28)
[2016-11-14 15:25] LABS: BLOOD GAS CARBOXYHEMOGLOBIN 1.5 % (0-4); BLOOD GAS HCO3 30 mmol/L (22-26); BLOOD GAS METHEMOGLOBIN 0.6 % (0-2); BLOOD GAS O2 HGB SATURATION 94 % (90-100); BLOOD GAS OXYGEN CONTENT 15.2 Vol % (12.0-20.0); BLOOD GAS PCO2 41 mmHg (38-42); BLOOD GAS PO2 73 mmHG (61-120); BLOOD GAS TOTAL HGB 11.5 G/DL (12.0-16.0); CRITICAL VALUE NO; DRAW SITE RT RADIAL; LITER FLOW 2 L/M; NUMBER OF ARTERIAL PUNCTURES 2; OXYGEN DEVICE NASAL CANNULA; STAT YES; TEMP CORR TO 98.6; ULNAR PULSE PRESENT
[2016-11-14 16:13] LABS: AUTOMATED NEUTROPHIL # 9.2 TH/MM3 (1.8-7.7); BASOPHIL # 0.1 TH/MM3 (0-0.2); BASOPHIL % 0.7 % (0.0-2.0); EOSINOPHIL % 0.2 % (0.0-4.0); HEMATOCRIT 33.5 % (35.0-46.0); HEMO FLAGS DIFF FINAL; LYMPH % 13.2 % (9.0-44.0); LYMPHOCYTE # 1.6 TH/MM3 (1.0-4.8); MEAN CELL VOLUME 85.3 FL (80.0-100.0); MEAN CORPUSCULAR HEMOGLOBIN 27.2 PG (27.0-34.0); MEAN CORPUSCULAR HGB CONC 31.9 % (32.0-36.0); MONO % 10.2 % (0.0-8.0); NEUT % 75.7 % (16.0-70.0); PLATELET COUNT 479 TH/MM3 (150-450); RED BLOOD COUNT 3.92 MIL/MM3 (4.00-5.30); RED CELL DISTRIBUTION WIDTH 17.3 % (11.6-17.2); WHITE BLOOD COUNT 12.1 TH/MM3 (4.0-11.0)
--- NOTE | 2016-11-14 16:23 | RADRPT ---
EXAM DATE/TIME: 11/14/2016 15:50 [facility] COMPARISON: CHEST PA & LAT, December 22, 2015, 17:19. CHEST SINGLE AP, July 11, 2015, 4:50. INDICATIONS : Short of breath since yesterday. MEDICAL HISTORY : Cardiovascular disease. Carcinoma, breast. SURGICAL HISTORY : Hysterectomy. Mastectomy, bilateral. ENCOUNTER: Initial ACUITY: 2 days PAIN SCORE: 0/10 LOCATION: Bilateral chest FINDINGS: Portable AP view of the chest demonstrates complete opacification of the left hemithorax without shif t of the mediastinum. Right chest wall Imcysr-o-Radn is present. Distal tip is in the SVC. Right lung demonstrates no pneumothorax, pleural effusion, or airspace consolidation. Bones and soft tissues de monstrate no acute finding. CONCLUSION: Complete opacification of the left hemithorax without shift of the mediastinum suggests a space-occup adonay process, most likely a large pleural effusion with associated volume loss. Chest CT is currently ordered and will offer additional characterization. Davis Sierra MD on November 14, 2016 at 16:19 Board Certified Radiologist. This report was verified electronically.
[2016-11-14] MEDS ORDERED: AZTREONAM INJ 2,000 MG in SODIUM CHLORIDE 0.9% INJ 100 ML IV ONE (16:30)
[2016-11-14] MEDS ORDERED: VANCOMYCIN INJ 1,000 MG in SODIUM CHLOR 0.9% 250 ML INJ 250 ML IV ONE (16:30)
[2016-11-14 16:38] LABS: ALKALINE PHOSPHATASE 183 U/L (45-117); ALT (GPT) 27 U/L (10-53); ANION GAP 8 MEQ/L (5-15); AST (GOT) 24 U/L (15-37); BICARBONATE 29.4 MEQ/L (21.0-32.0); BLOOD UREA NITROGEN 8 MG/DL (7-18); CHLORIDE 102 MEQ/L (98-107); GLOMERULAR FILTRATION RATE 141 ML/MIN (>89); MAGNESIUM 2.1 MG/DL (1.5-2.5); SODIUM (NA) 139 MEQ/L (136-145); TOTAL BILIRUBIN ADULT 0.4 MG/DL (0.2-1.0)
[2016-11-14 16:41] LABS: POTASSIUM 2.7 MEQ/L (3.5-5.1)
[2016-11-14] MEDS ORDERED: LIDOCAINE HCL 1% 20 ML VIAL ONE (16:53)
[2016-11-14 16:56] LABS: PROTHROMBIN TIME - PATIENT 11.4 SEC (9.8-11.6)
[2016-11-14] MEDS ORDERED: GLUCAGON 1 MG/ML VIAL OTHER PRN (17:00)
[2016-11-14] MEDS ORDERED: SENNOSIDES 8.6 MG TAB PO PRN (17:00)
[2016-11-14] MEDS ORDERED: POTASSIUM CHLORIDE 20 MEQ CONTROLLED RELEASE TAB PO ONE (17:00)
[2016-11-14] MEDS ORDERED: CHLORHEXIDINE GLUCONATE 2 % 1 PACK (2 CLOTHS) TOP PRN (17:00)
[2016-11-14] MEDS ORDERED: LACTULOSE SYRUP 20 GM/30 ML CUP PO PRN (17:00)
[2016-11-14] MEDS ORDERED: MISCELLANEOUS NURSING INFORMATION XX SCH (17:00)
[2016-11-14] MEDS ORDERED: POTASSIUM PHOSPHATE MONOBASIC 500 MG TAB PO/TUBE PRN (17:00)
[2016-11-14] MEDS ORDERED: MAGNESIUM SULFATE INJ 4 GM in SODIUM CHLORIDE 0.9% INJ 92 ML IV PRN (17:00)
[2016-11-14] MEDS: INSULIN NovoLIN REGULAR SUPPLEMENTAL SCALE SQ SCH ×2 (17:00→21:00)
[2016-11-14] MEDS ORDERED: RESP: ALBUTEROL 2.5 MG/IPRATROPIUM 0.5 MG NEB (PRN) INH (17:00)
[2016-11-14] MEDS ORDERED: POTASSIUM PHOSPHATE INJ 30 MMOL in SODIUM CHLOR 0.9% 250 ML INJ 250 ML IV PRN (17:00)
[2016-11-14] MEDS: methylPREDNISolone SOD SUCC 40 MG/1 ML VIAL IV PUSH SCH (17:00)
[2016-11-14] MEDS ORDERED: POTASSIUM CHLOR 40 MEQ PREMIX 100 ML IV PRN (17:00)
[2016-11-14] MEDS ORDERED: MAGNESIUM HYDROXIDE SUSP 30 ML CUP PO PRN (17:00)
[2016-11-14] MEDS ORDERED: SODIUM PHOSPHATE INJ 30 MMOL in SODIUM CHLOR 0.9% 250 ML INJ 240 ML IV PRN (17:00)
[2016-11-14] MEDS ORDERED: MAGNESIUM SULFATE INJ 2 GM in SODIUM CHLORIDE 0.9% INJ 96 ML IV PRN (17:00)
[2016-11-14] MEDS ORDERED: POTASSIUM CHLOR 20 MEQ PREMIX 100 ML IV ONE (17:00)
[2016-11-14] MEDS ORDERED: POTASSIUM CHLOR 20 MEQ PREMIX 100 ML IV PRN ×2 (17:00)
[2016-11-14] MEDS ORDERED: MAGNESIUM OXIDE 400 MG TAB PO PRN (17:00)
[2016-11-14] MEDS ORDERED: POTASSIUM PHOSPHATE MONOBASIC 500 MG TAB PO PRN (17:00)
[2016-11-14] MEDS ORDERED: POTASSIUM CHLORIDE 25 MEQ EFFERVESCENT TAB PO PRN (17:00)
[2016-11-14] MEDS ORDERED: DEXTROSE 50% IN WATER 50 ML VIAL(D50) IV PRN (17:00)
[2016-11-14] MEDS ORDERED: BISACODYL 10 MG SUPP RECTAL PRN (17:00)
[2016-11-14] MEDS ORDERED: MIDAZOLAM HCL 2 MG/2 ML VIAL ONE (17:17)
--- NOTE | 2016-11-14 18:26 | MH ---
cc: RINKU MOORE M.D. DATE OF ADMISSION 11/14/2016 Critical care admission DATE OF 1945 HISTORY OF THE PRESENT ILLNESS The patient is a 71-year-old female with a past medical history of breast cancer status post chemo and radiation therapy approximately 6 months ago presented to [facility] ED with a two month history of progressive worsening shortness of breath associated with cough. In addition she reports chest pain with coughing and deep inspiration. She denies any fever, chills or any constitutional symptoms. The patient reports edema of her left lower extremity. She also had some wheezing along with her shortness of breath. In the ER she was sating in the high 80s and tachypneic. She denies any use of home oxygen. Chest x-ray in the ER showed complete opacification of left hemithorax without any shift of the mediastinum, likely a large pleural effusion with associated volume loss. The patient is scheduled to undergo ultrasound-guided thoracentesis by IR and possible pigtail catheter placement. She had an ABG done on 2 liters oxygen which showed a pH of 7.47, CO2 41, pAO2 73, bicarb 30 and saturation 94%. The patient states that she had a previous thoracentesis done on the left lung over 6 months ago. She was found to have a white count of 12.1, however, she is afebrile. In the ED she was given vancomycin, scheduled to receive aztreonam and potassium supplements for a K level of 2.7. Her lactic acid level measured at 1.3. When seen in the ER she is on 2 liters oxygen with saturation 95-99% and blood pressure of 130/75 with a pulse of 85. PAST MEDICAL HISTORY Significant for: 1. Breast cancer. 2. Gastroesophageal reflux disease. 3. Bronchial asthma on prednisone. PAST SURGICAL HISTORY 1. Previous hysterectomy. 2. Previous cataract surgery. 3. Previous bilateral mastectomy. 4. Previous port placement on the right. ALLERGIES MULTIPLE WHICH INCLUDE CAPTOPRIL, BENAZEPRIL, ENALAPRIL, FOSINOPRIL, LISINOPRIL, LEVAQUIN, OXYCODONE, PENICILLIN-G. SOCIAL HISTORY The patient has 20 pack year history of smoking, quit 4 years ago. Denies any alcohol use. FAMILY HISTORY Noncontributory. MEDICATIONS At home include: 1. Prednisone. 2. Restoril. 3. Simvastatin. 4. Gabapentin. 5. Lasix. 6. Tylenol with Codeine. REVIEW OF SYSTEMS As per history of present illness. The rest of the review of systems is unremarkable. PHYSICAL EXAMINATION GENERAL: A 71-year-old female lying in bed in mild respiratory distress. VITAL SIGNS: Temperature of 98.3, pulse of 85, blood pressure 130/75, saturation 93% on 2 liters oxygen. HEENT: Atraumatic, normocephalic. Pupils equal, round and reactive to light and accommodation. Extraocular muscles intact. Conjunctivae pink. Nonicteric sclerae. Oral mucosa within normal. NECK: Supple. No JVD, adenopathy or thyromegaly. Trachea midline. CARDIOVASCULAR: Regular rate and rhythm. Normal S1-S2. No murmurs, rubs or gallops noted. LUNGS: Pulmonary exam, diminished breath sounds on the left. Coarse breath sounds and scattered wheezing on the right. ABDOMEN: Soft, nontender, no distension. Positive bowel sounds. EXTREMITIES: No cyanosis, clubbing. Trace to +1 edema noted. NEUROLOGIC: No focal sensory deficit. LABORATORY DATA Sodium 139, potassium 2.9, chloride 102, CO2 29, BUN 8, creatinine 0.52, glucose 94. Lactic acid 1.3. Total bilirubin 0.4, AST 24, ALT 27, alk phos 183. Troponin less than 0.02. Albumin 3.0. WBC 12.1, hemoglobin 10.7, hematocrit 33, platelet count 479. INR 1.0. PT 11.4. IMAGING Radiographic studies, a chest x-ray showed complete opacification of left hemithorax without any shift of mediastinum suggestive of large pleural effusion with volume loss. IMPRESSION 1. Acute hypoxemic respiratory failure. 2. Opacification of the left hemithorax. 3. A large left pleural effusion. 4. Hypokalemia. 5. Anemia. 6. Breast CA status post chemo and radiation therapy in the past. 7. Mild leukocytosis likely stress-related. RECOMMENDATIONS 1. Monitor neuro status closely and avoid sedatives. 2. Continue with oxygen to maintain sats above 92%. 3. Bronchodilators in the form of DuoNeb q.4h plus q.2h as needed for shortness of breath. 4. Place on Solu-Medrol 40 mg IV q.8. The patient takes prednisone 10 mg tablet at home. 5. Noninvasive positive pressure ventilation p.r.n. for respiratory distress. 6. The patient scheduled to undergo ultrasound-guided left thoracentesis with possible pigtail catheter placement by IR. I will follow up on pleural fluid analysis, culture and cytology. 7. She had previous ultrasound-guided thoracentesis on the left in October of 2015. 8. Monitor heart rate and blood pressure closely and maintain MAP greater than 65 mmHg. 9. Monitor renal function ins and outs and we will place on electrolyte replacement protocol. The patient will need potassium replacement for K of 2.7. 10. Keep n.p.o. for now and place on Protonix 40 mg daily. 11. Monitor CBC. In addition will consult oncology service. The patient is known to Dr. Reed. She received chemo radiation treatment approximately 6 months ago. 12. Monitor for signs of infections which include fever and WBC. Follow up on blood cultures. She received vancomycin and aztreonam in the ER. Will hold off on further antibiotics at this time as there is no evidence of any infectious process. Will obtain a urinalysis with culture if needed and repeat chest x-ray post thoracentesis. 13. Place on sliding scale insulin with Accu-Cheks for glycemic control if needed. 14. GI prophylaxis with Protonix 40 mg daily and DVT prophylaxis with SCDs. Will hold off on chemical anticoagulation prophylaxis for now given the patient is scheduled to undergo thoracentesis. Further recommendation will be based on hospital course. MD NAZANIN Quiñones/TONY /5:07 PM /5:51 PM
--- NOTE | 2016-11-14 18:33 | PD.RAD ---
Post CT Procedure Prog Note Pre Procedure Diagnosis: (1) Hypoxia (2) Respiratory distress (3) Pleural effusion Post Procedure Diagnosis: (1) Hypoxia (2) Respiratory distress (3) Pleural effusion Procedure Date: Nov 14, 2016 Supervising Radiologist: Loy Hopson Anesthesia: Local, Analgesia, Conscious Sedation Plan of Activity Patient to Unit: Other (ED) Patient Condition: Fair See PACS Report for procedural detail/treatment Drainage Procedure Procedure 1 Imaging Guidance: CT Side: Left Procedure Type: Chest Tube Non-Tunneled Procedure: Placement Russian: 10 Drainage: Pleurovac Fluid Removal (CCs): 1550 Fluid Description: Bloody ((AT the end of the drained volume)), Loy Bryant MD Nov 14, 2016 18:33
[2016-11-14] MEDS: RESP: ALBUTEROL 2.5 MG/IPRATROPIUM 0.5 MG NEB (SCH) INH (19:52)
[2016-11-14] MEDS ORDERED: MORPHINE SULFATE 4 MG/ML INJ IV ONE (21:00)
[2016-11-14] MEDS: DOCUSATE SODIUM 50 MG/SENNA 8.6 MG TAB PO SCH (21:00)
[2016-11-15] VITALS (14 sets, daily range): BP systolic 138–197; BP diastolic 63–81; PULSE 75–92; RESP 16–26; TEMP 98–98.8; O2SAT 20–96
[2016-11-15] MEDS: methylPREDNISolone SOD SUCC 40 MG/1 ML VIAL IV PUSH SCH ×3 (01:00→16:58)
[2016-11-15] MEDS: INSULIN NovoLIN REGULAR SUPPLEMENTAL SCALE SQ SCH ×6 (01:00→20:44)
[2016-11-15] MEDS: RESP: ALBUTEROL 2.5 MG/IPRATROPIUM 0.5 MG NEB (SCH) INH ×5 (03:42→23:51)
[2016-11-15] MEDS: CHLORHEXIDINE GLUCONATE 2 % 1 PACK (2 CLOTHS) TOP SCH (03:45)
--- NOTE | 2016-11-15 05:16 | RADRPT ---
EXAM DATE/TIME: 11/15/2016 04:36 [facility] COMPARISON: CHEST EXPIRATION ONLY, November 03, 2015, 14:29. INDICATIONS : Short of breath. MEDICAL HISTORY : Cardiovascular disease. Carcinoma, breast SURGICAL HISTORY : None. ENCOUNTER: Subsequent ACUITY: 1 week PAIN SCORE: 0/10 LOCATION: Bilateral chest FINDINGS: A single portable frontal view of the chest shows complete consolidation involving the left lung with out aerated lung remaining on the left. Right lung shows a patchy area consolidation involving the me dial base. The left heart border is totally obscured. Right heart border is unremarkable. No effusion on the right. A power port overlies the right chest. CONCLUSION: Complete consolidation involving the left lung which is a new finding from the prior study with small area of parenchymal consolidation involving the medial right lung base. Kenneth Sifuentes Jr., MD on November 15, 2016 at 5:14 Board Certified Radiologist. This report was verified electronically.
[2016-11-15 05:41] LABS: AUTOMATED NEUTROPHIL # 14.3 TH/MM3 (1.8-7.7); BASOPHIL # 0.1 TH/MM3 (0-0.2); BASOPHIL % 0.4 % (0.0-2.0); EOSINOPHIL % 0.1 % (0.0-4.0); HEMATOCRIT 33.5 % (35.0-46.0); HEMO FLAGS DIFF FINAL; LYMPH % 9.1 % (9.0-44.0); LYMPHOCYTE # 1.6 TH/MM3 (1.0-4.8); MEAN CELL VOLUME 84.9 FL (80.0-100.0); MEAN CORPUSCULAR HEMOGLOBIN 27.2 PG (27.0-34.0); MONO % 6.9 % (0.0-8.0); NEUT % 83.5 % (16.0-70.0); PLATELET COUNT 458 TH/MM3 (150-450); RED BLOOD COUNT 3.95 MIL/MM3 (4.00-5.30); RED CELL DISTRIBUTION WIDTH 17.2 % (11.6-17.2); WHITE BLOOD COUNT 17.1 TH/MM3 (4.0-11.0)
[2016-11-15 06:10] LABS: ALKALINE PHOSPHATASE 178 U/L (45-117); ALT (GPT) 23 U/L (10-53); ANION GAP 6 MEQ/L (5-15); AST (GOT) 24 U/L (15-37); BICARBONATE 29.9 MEQ/L (21.0-32.0); BLOOD UREA NITROGEN 9 MG/DL (7-18); CHLORIDE 104 MEQ/L (98-107); GLOMERULAR FILTRATION RATE 141 ML/MIN (>89); SODIUM (NA) 140 MEQ/L (136-145); TOTAL BILIRUBIN ADULT 0.5 MG/DL (0.2-1.0)
[2016-11-15 06:21] LABS: POTASSIUM 2.9 MEQ/L (3.5-5.1)
[2016-11-15] MEDS: PANTOPRAZOLE SODIUM 40 MG VIAL IV PUSH SCH (08:36)
[2016-11-15] MEDS: POTASSIUM CHLOR 40 MEQ PREMIX 100 ML IV PRN (08:41)
[2016-11-15] MEDS: DOCUSATE SODIUM 50 MG/SENNA 8.6 MG TAB PO SCH ×2 (09:00→20:44)
--- NOTE | 2016-11-15 09:56 | RADRPT ---
EXAM DATE/TIME: 11/14/2016 17:28 INDICATIONS : Pleural effusion SEDATION TIME: 30 minutes MEDICATION(S): 1.) 1.5 mg midazolam (Versed) IV 2.) 75 mcg fentanyl (Sublimaze) IV DEVICE(S): 1.) 10 Fr catheter 2.) 18 gauge Devine blunt needle Total volume of 1600 cc of clear, yellow fluid was removed. The last 50 cc was somewhat bloody. Fluid was discarded. MEDICAL HISTORY : Carcinoma, breast. Hypertension. SURGICAL HISTORY : Mastectomy, bilateral. ENCOUNTER: Initial ACUITY: 1 day PAIN SCORE: 0/10 LOCATION: Left chest PROCEDURE: 1. CT guided Left thoracentesis with chest tube placement. 2. Conscious sedation with continuous EKG and oximetry monitoring. 3. EKG and oximetry remained stable throughout the procedure. The site was prepped in sterile fashion. Full sterile technique was used, including cap, mask, steri le gloves and gown and a large sterile sheet. Hand hygiene and 2% chlorhexidine and/or betadine/alco hol prep was utilized per protocol for cutaneous antisepsis. The skin and subcutaneous tissues were infiltrated with local anesthetic solution. Using automated exposure control and adjustment of the m A and/or kV according to patient size, radiation dose was kept as low as reasonably achievable to obt ain optimal diagnostic quality images. DICOM format image data is available electronically for revie w and comparison. Under CT guidance a 10 Danish nonlocking catheter was placed in the left basilar pleural space. 1600 cc of fluid were gently aspirated out of the chest. Chest tube was inserted. Post procedural scan sh ow reduction in the amount of fluid with a tiny pneumothorax. The patient tolerated the procedure well and there were no complications. EKG and oximetry remained s table throughout the procedure. The patient was sent to recovery in stable condition. CONCLUSION: Uncomplicated CT-guided thoracentesis with chest tube insertion. Loy Hopson MD on November 15, 2016 at 9:52 Board Certified Radiologist. This report was verified electronically.
--- NOTE | 2016-11-15 10:08 | HHI.CCPN ---
Subjective Remarks/Hospital Course The patient is a 71-year-old female with a past medical history of breast cancer status post chemo and radiation therapy approximately 6 months ago presented to [facility] ED with a two month history of progressive worsening shortness of breath associated with cough. In addition she reports chest pain with coughing and deep inspiration. She denies any fever, chills or any constitutional symptoms. The patient reports edema of her left lower extremity. She also had some wheezing along with her shortness of breath. In the ER she was sating in the high 80s and tachypneic. She denies any use of home oxygen. Chest x-ray in the ER showed complete opacification of left hemithorax without any shift of the mediastinum, likely a large pleural effusion with associated volume loss. The patient is scheduled to undergo ultrasound-guided thoracentesis by IR and possible pigtail catheter placement. She had an ABG done on 2 liters oxygen which showed a pH of 7.47, CO2 41, pAO2 73, bicarb 30 and saturation 94%. The patient states that she had a previous thoracentesis done on the left lung over 6 months ago. She was found to have a white count of 12.1, however, she is afebrile. In the ED she was given vancomycin, scheduled to receive aztreonam and potassium supplements for a K level of 2.7. Her lactic acid level measured at 1.3. When seen in the ER she is on 2 liters oxygen with saturation 95-99% and blood pressure of 130/75 with a pulse of 85. 11/15 Patient s/p left CT guided thoracentesis/CT placement yesterday with removal 1550 ml. Awake on 2L oxygen hypertensive. Objective Vital Signs Date Time Temp Pulse Resp B/P (MAP) Pulse Ox O2 Delivery O2 Flow Rate FiO2 11/15/16 08:00 86 11/15/16 08:00 98.6 16 138/65 (89) 96 11/15/16 07:30 Nasal Cannula 2.00 11/14/16 19:57 21 Intake and Output 11/15/16 11/15/16 11/16/16 08:00 16:00 00:00 Intake Total 956 ml Output Total 1770 ml Balance -814 ml Result Diagram: 11/15/1643911/15/160 Other Results Laboratory Tests Test 11/14/16 15:13 11/14/16 15:40 11/14/16 15:50 11/14/16 16:30 Blood Gas Puncture Site RT RADIAL Blood Gas Patient Temperature 98.6 Blood Gas HCO3 30 mmol/L Blood Gas Base Excess 6.0 mmol/L Blood Gas Oxygen Saturation 94 % Arterial Blood pH 7.47 Arterial Blood Partial Pressure CO2 41 mmHg Arterial Blood Partial Pressure O2 73 mmHG Arterial Blood Oxygen Content 15.2 Vol % Arterial Blood Carboxyhemoglobin 1.5 % Arterial Blood Methemoglobin 0.6 % Blood Gas Hemoglobin 11.5 G/DL Oxygen Delivery Device NASAL CANNULA Blood Gas Liter Flow 2 L/M White Blood Count 12.1 TH/MM3 Red Blood Count 3.92 MIL/MM3 Hemoglobin 10.7 GM/DL Hematocrit 33.5 % Mean Corpuscular Volume 85.3 FL Mean Corpuscular Hemoglobin 27.2 PG Mean Corpuscular Hemoglobin Concent 31.9 % Red Cell Distribution Width 17.3 % Platelet Count 479 TH/MM3 Mean Platelet Volume 6.8 FL Neutrophils (%) (Auto) 75.7 % Lymphocytes (%) (Auto) 13.2 % Monocytes (%) (Auto) 10.2 % Eosinophils (%) (Auto) 0.2 % Basophils (%) (Auto) 0.7 % Neutrophils # (Auto) 9.2 TH/MM3 Lymphocytes # (Auto) 1.6 TH/MM3 Monocytes # (Auto) 1.2 TH/MM3 Eosinophils # (Auto) 0.0 TH/MM3 Basophils # (Auto) 0.1 TH/MM3 CBC Comment DIFF FINAL Differential Comment Blood Urea Nitrogen 8 MG/DL Creatinine 0.52 MG/DL Random Glucose 94 MG/DL Total Protein 8.0 GM/DL Albumin 3.0 GM/DL Calcium Level 9.4 MG/DL Magnesium Level 2.1 MG/DL Alkaline Phosphatase 183 U/L Aspartate Amino Transf (AST/SGOT) 24 U/L Alanine Aminotransferase (ALT/SGPT) 27 U/L Total Bilirubin 0.4 MG/DL Sodium Level 139 MEQ/L Potassium Level 2.7 MEQ/L Chloride Level 102 MEQ/L Carbon Dioxide Level 29.4 MEQ/L Anion Gap 8 MEQ/L Estimat Glomerular Filtration Rate 141 ML/MIN Phosphorus Level 2.3 MG/DL Troponin I LESS THAN 0.02 NG/ML B-Type Natriuretic Peptide 25 PG/ML Lactic Acid Level 1.3 mmol/L Prothrombin Time 11.4 SEC Prothromb Time International Ratio 1.0 RATIO Test 11/14/16 18:30 11/15/16 04:40 Nasal Screen MRSA (PCR) MRSA NOT DETECTED White Blood Count 17.1 TH/MM3 Red Blood Count 3.95 MIL/MM3 Hemoglobin 10.7 GM/DL Hematocrit 33.5 % Mean Corpuscular Volume 84.9 FL Mean Corpuscular Hemoglobin 27.2 PG Mean Corpuscular Hemoglobin Concent 32.0 % Red Cell Distribution Width 17.2 % Platelet Count 458 TH/MM3 Mean Platelet Volume 6.9 FL Neutrophils (%) (Auto) 83.5 % Lymphocytes (%) (Auto) 9.1 % Monocytes (%) (Auto) 6.9 % Eosinophils (%) (Auto) 0.1 % Basophils (%) (Auto) 0.4 % Neutrophils # (Auto) 14.3 TH/MM3 Lymphocytes # (Auto) 1.6 TH/MM3 Monocytes # (Auto) 1.2 TH/MM3 Eosinophils # (Auto) 0.0 TH/MM3 Basophils # (Auto) 0.1 TH/MM3 CBC Comment DIFF FINAL Differential Comment Blood Urea Nitrogen 9 MG/DL Creatinine 0.52 MG/DL Random Glucose 96 MG/DL Total Protein 6.9 GM/DL Albumin 2.5 GM/DL Calcium Level 8.9 MG/DL Phosphorus Level 2.4 MG/DL Magnesium Level 2.0 MG/DL Alkaline Phosphatase 178 U/L Aspartate Amino Transf (AST/SGOT) 24 U/L Alanine Aminotransferase (ALT/SGPT) 23 U/L Total Bilirubin 0.5 MG/DL Sodium Level 140 MEQ/L Potassium Level 2.9 MEQ/L Chloride Level 104 MEQ/L Carbon Dioxide Level 29.9 MEQ/L Anion Gap 6 MEQ/L Estimat Glomerular Filtration Rate 141 ML/MIN Imaging Last Impressions Chest X-Ray 11/15/16 0000 Signed Impressions: Service Date/Time: Tuesday, November 15, 2016 04:36 - CONCLUSION: Complete consolidation involving the left lung which is a new finding from the prior study with small area of parenchymal consolidation involving the medial right lung base. Kenneth Sifuentes Jr., MD Objective Remarks GENERAL: Patient is 71 yo lying in bed in no acute resp distress SKIN: Warm and dry. HEAD: Normocephalic. EYES: No scleral icterus. No injection or drainage. NECK: Supple, trachea midline. No JVD or lymphadenopathy. CARDIOVASCULAR: Regular rate and rhythm without murmurs, gallops, or rubs. RESPIRATORY: Diminished BS on left, coarse BS on right. GASTROINTESTINAL: Abdomen soft, non-tender, nondistended. MUSCULOSKELETAL: No cyanosis, or edema. Neuro : Awake and alert. A/P Assessment and Plan 1. Acute hypoxemic respiratory failure. 2. Opacification of the left hemithorax. 3. A large left pleural effusion. 4. Hypokalemia. 5. Anemia. 6. Breast CA status post chemo and radiation therapy in the past. 7. Mild leukocytosis likely stress-related. Plan Neuro: Awake and alert. Monitor neuro status and avoid sedatives. Pulm: Continue with oxygen to maintain sats above 92%. Bronchodilators, Solu-Medrol 40 mg IV q.8. On prednisone 10 mg at home NIPPV PRN for resp distress s/p CT guided thoracentesis/CT placement- Monitor CT drainage. Check pleural fluid analysis/cx/cytology Check CT chest for further eval pulm parenchyma and r/o lung mets CV: Monitor HR and BP and maintain MAP>65 mmHg. Check 2D echo to eval LV function : Monitor renal function, electrolyte replacement protocol. Will need K, Phos replacement today GI: On Protonix 40 mg daily. Heme: Monitor CBC. Consult oncology service.s/p chemo radiation treatment approximately 6 months ago. ID: Monitor for signs of infections( fever and WBC). Received vancomycin and aztreonam in the ER. Continue with Aztreonam, follow up on BC from 11/14, check UA Endo: SSI with Accu-Cheks for glycemic control GI prophylaxis with Protonix 40 mg daily and DVT prophylaxis with SCDs. Donald Arauz MD Nov 15, 2016 10:08
--- NOTE | 2016-11-15 11:06 | RADRPT ---
EXAM DATE/TIME: 11/15/2016 10:38 [facility] COMPARISON: CT THORACENTESIS WITH INSERTION, LEFT, November 14, 2016, 17:28. INDICATIONS : Short of breath. MEDICAL HISTORY : Hypertension. Gastroesophageal reflux disease. Asthma. Breast cancer. SURGICAL HISTORY : Hysterectomy. Mastectomy, bilateral. Cataract removal. Bilateral foot surgery. ENCOUNTER: Subsequent ACUITY: 2 days PAIN SCORE: 0/10 LOCATION: Left chest FINDINGS: Small caliber left chest tube is present. There is dense consolidation of the left lung also is some atelectasis and probable residual fluid. Minimal opacity right lung base. No right pneumothorax. Infu se-a-Port tip in right atrium. CONCLUSION: 1. Placement of small caliber left chest tube with persistent dense consolidation of the entire left lung with some mild volume loss. Minimal right basilar airspace disease. Marlo Mckeon MD on November 15, 2016 at 11:02 Board Certified Radiologist. This report was verified electronically.
[2016-11-15] MEDS ORDERED: IOHEXOL 350 MG/ML 10 ML VIAL (for RAD DIAG) IVCONTRAST ONE (11:34)
[2016-11-15 11:46] LABS: PLEURAL FLUID LYMPHS 36 %
--- NOTE | 2016-11-15 12:00 | RADRPT ---
EXAM DATE/TIME: 11/15/2016 11:28 [facility] COMPARISON: No previous studies available for comparison. INDICATIONS : Effusion,opacification of left hemithorax,history breast cancer. IV CONTRAST: 71 cc Omnipaque 350 (iohexol) IV RADIATION DOSE: 6.07 CTDIvol (mGy) MEDICAL HISTORY : Hypertension. Carcinoma, breast. SURGICAL HISTORY : Mastectomy, bilateral. Hysterectomy. ENCOUNTER: Initial ACUITY: 1 day PAIN SCALE: 5/10 LOCATION: cranial TECHNIQUE: Volumetric scanning of the chest was performed. Using automated exposure control and adjustment of t he mA and/or kV according to patient size, radiation dose was kept as low as reasonably achievable to obtain optimal diagnostic quality images. DICOM format image data is available electronically for review and comparison. Follow-up recommendations for detected pulmonary nodules are based at a minimum on nodule size and pa tient risk factors according to Fleischner Society Guidelines. FINDINGS: There is dense consolidation of almost the entire left lung, also with basilar atelectasis. There is a small left-sided pleural effusion and a small left pneumothorax. Numerous right lung nodules presen t characteristic of metastatic lung disease largest measuring up to but 1.5 cm in diameter. There is extensive bony metastatic disease with mixed lytic and sclerotic lesions noted. Less severe involvement is around T9 and T10. There are pathologic fractures of T9 and T6. [id number]-c-[id number] is in right atrium. No evidence for pulmonary embolus. Upper abdomen reveals numerous hepatic metastases measuring up to 5.9 cm and the left lobe. Moderate anasarca. CONCLUSION: 1. Widespread metastatic disease involving the lungs, liver and bony structures of the thorax as abov e. 2. Dense consolidation and atelectasis of almost the entire left lung with residual small left effusi on and small left pneumothorax with a small caliber left chest tube present. 3. Pathologic fractures of T9 and T6 with moderate compression. Marlo Mckeon MD on November 15, 2016 at 11:50 Board Certified Radiologist. This report was verified electronically.
[2016-11-15] MEDS: AZTREONAM INJ 1,000 MG in SODIUM CHLORIDE 0.9% INJ 100 ML IV SCH ×2 (12:21→17:47)
[2016-11-15] MEDS: MORPHINE SULFATE 4 MG/ML INJ IV PUSH PRN ×3 (13:09→20:44)
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
--- NOTE | 2016-11-15 16:59 | MB ---
cc: GEOVANNAGEOVANNA DATE OF CONSULTATION 11/15/16 REASON FOR CONSULTATION Metastatic lung cancer, consolidated left lung. HISTORY OF PRESENT ILLNESS Mrs. Reyes is a 71-year-old -[place] female with past medical history of breast cancer post radiation and chemotherapy complaining of progressive shortness of breath with evidence of hypoxemia requiring oxygen therapy. She did have a previous pleural effusion and left thoracentesis. She was admitted with acute respiratory failure and opacified left chest. CT scan of the chest revealed a consolidated left lung with evidence of widespread metastatic disease. PAST MEDICAL HISTORY 1. Breast cancer. 2. Bronchial asthma 3. Acid reflux disease, 4. Previous hysterectomy, 5. Mastectomy, 6. Cataract surgery 7. Port for chemotherapy on the right ALLERGIES Multiple, kindly review admission records. They include CAPTOPRIL BENAZEPRIL ENALAPRIL FOSINOPRIL LEVAQUIN OXYCODONE PENICILLIN SOCIAL HISTORY Remote smoking history, stopped four years ago. Does not drink any alcohol. FAMILY HISTORY Noncontributory. MEDICATIONS AT HOME 1. Oral Prednisone 2. Restoril 3. Simvastatin. 4. Gabapentin. 5. Lasix. 6. Tylenol with Codeine. REVIEW OF SYSTEMS A 12-point review of systems as per HPI and past history otherwise negative, PHYSICAL EXAMINATION VITAL SIGNS: Temperature 98, pulse 80, respirations 18, blood pressure 140/60, oxygen saturation 96% on two liters oxygen. HEENT: Unremarkable. Eyes without icterus. NECK: Without adenopathy or thyroid enlargement. Central trachea. CHEST: Decreased breath sounds left chest. CARDIAC: PMI distant. S1-S2 audible. No murmur or rub. ABDOMEN: Lax, liver two fingerbreadths below right costal margin. EXTREMITIES: 1+ edema. IMAGING STUDIES CT scan of the chest with widespread metastatic disease to lung, liver, bone and diffuse consolidation, atelectasis of the entire left chest with a small effusion. LABORATORY DATA White count 17,000, hemoglobin 10, hematocrit 33. Sodium 140, potassium 2.9, BUN 9, creatinine 0.5. IMPRESSION 1. Metastatic breast cancer 2. Respiratory failure on oxygen therapy 3. Atelectatic consolidated left lung. PLAN The patient is with metastatic cancer with widespread metastasis as described in the CT scan of the chest. Supplemental oxygen therapy is being given, empiric antibiotic therapy would be appropriate. Bronchodilator therapy. Palliative care consultation has been obtained. I believe the patient should be kept comfortable with therapy as outlined above. Her outlook is extremely poor. I do thank you for asking me to partake in Mrs. Reyes's care. Geovanna Austin MD WWW/ /4:21 PM /4:43 PM
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
--- NOTE | 2016-11-15 20:15 | MR ---
cc: CORIN DUMONT DATE 11/15/16 PREOPERATIVE DIAGNOSIS Cavitary lung mass. POSTOPERATIVE DIAGNOSIS Cavitary lung mass. PROCEDURE Fiberoptic bronchoscopy BRONCHOSCOPIST Aleks Dumont MD PROCEDURE IN DETAIL Informed consent was obtained from the patient. Procedure and complications including complication of aneasthesia, pneumothorax requiring chest tube, bleeding complication, injury to the blood vessels, lungs, nerves, arrhythmia, hypoxia explained and he consented for the procedure. The patient was brought to the operating room under general anesthesia. LMA tube was placed by anesthesiologist. Bronchoscopy done via LMA tube. Vocal cords are normal. Trachea is normal. Small amount of mucous was suctioned. Main bettina is sharp. Bronchoscope was advanced to the left lung, left upper, lingula, lower lobe were visualized. A small amount of mucous was suctioned. No endobronchial mucosa or lesion was seen. Then bronchoscope pulled back, advanced to the right lung, right upper, middle, lower lobe were visualized. A small amount of mucous was suctioned. Right lower lobe brushing, biopsy and washings were done. He had small amount of bleeding which was controlled with saline lavage. Biopsy sent for pathology. Brushings sent for cytology. Bronchial washing is sent for routine culture, AFB fungal culture, cytology and TB PCR. Post procedure chest x-ray ordered to rule out pneumothorax. MD NANI Feng/ /7:41 PM /7:58 PM [facility] [place] DIVISIONAndrew
[2016-11-15] MEDS: hydrALAZINE HCL 20 MG/ML VIAL IV PUSH PRN (20:44)
[2016-11-15] MEDS: HEPARIN SODIUM - SQ 10,000 UNITS/ML VIAL SQ SCH (20:44)
--- NOTE | 2016-11-15 21:59 | EKG ---
Date Performed: 11/14/2016 Time Performed: 15:13:25 PTAGE: 71 years EKG: NORMAL Sinus rhythm WITH PAC'S NONSPECIFIC ST T WAVE CHANGES ABNORMAL RHYTHM ECG PREVIOUS TRACING : 12/22/2015 18.09 DOCTOR: George Valerio Interpretating Date/Time 11/15/2016 21:59:01
[2016-11-16] VITALS (14 sets, daily range): BP systolic 141–187; BP diastolic 68–83; PULSE 80–103; RESP 19–31; TEMP 98.2–98.8; O2SAT 94–100
[2016-11-16] MEDS: methylPREDNISolone SOD SUCC 40 MG/1 ML VIAL IV PUSH SCH ×3 (01:00→17:38)
[2016-11-16] MEDS: INSULIN NovoLIN REGULAR SUPPLEMENTAL SCALE SQ SCH ×6 (01:00→21:00)
[2016-11-16] MEDS: AZTREONAM INJ 1,000 MG in SODIUM CHLORIDE 0.9% INJ 100 ML IV SCH ×3 (02:33→18:03)
[2016-11-16] MEDS: MORPHINE SULFATE 4 MG/ML INJ IV PUSH PRN ×2 (02:37→09:33)
[2016-11-16] MEDS: RESP: ALBUTEROL 2.5 MG/IPRATROPIUM 0.5 MG NEB (SCH) INH ×6 (03:25→23:34)
[2016-11-16] MEDS: CHLORHEXIDINE GLUCONATE 2 % 1 PACK (2 CLOTHS) TOP SCH (04:00)
[2016-11-16 06:16] LABS: BASOPHIL % 0.1 % (0.0-2.0); HEMATOCRIT 35.7 % (35.0-46.0); HEMO FLAGS DIFF FINAL; LYMPH % 4.4 % (9.0-44.0); LYMPHOCYTE # 0.7 TH/MM3 (1.0-4.8); MEAN CELL VOLUME 84.9 FL (80.0-100.0); MEAN CORPUSCULAR HEMOGLOBIN 27.3 PG (27.0-34.0); MEAN CORPUSCULAR HGB CONC 32.2 % (32.0-36.0); MONO % 5.3 % (0.0-8.0); NEUT % 90.2 % (16.0-70.0); PLATELET COUNT 435 TH/MM3 (150-450); RED BLOOD COUNT 4.21 MIL/MM3 (4.00-5.30); RED CELL DISTRIBUTION WIDTH 17.4 % (11.6-17.2); WHITE BLOOD COUNT 16.7 TH/MM3 (4.0-11.0)
[2016-11-16 06:31] LABS: BICARBONATE 29.7 MEQ/L (21.0-32.0); POTASSIUM 3.1 MEQ/L (3.5-5.1)
[2016-11-16] MEDS ORDERED: methylPREDNISolone SOD SUCC 125 MG/2 ML VIAL ONE (07:08)
[2016-11-16] MEDS ORDERED: FUROSEMIDE 40 MG/4 ML VIAL ONE (07:08)
[2016-11-16] MEDS: DOCUSATE SODIUM 50 MG/SENNA 8.6 MG TAB PO SCH ×2 (09:00→22:27)
[2016-11-16] MEDS: HEPARIN SODIUM - SQ 10,000 UNITS/ML VIAL SQ SCH ×2 (09:32→22:27)
[2016-11-16] MEDS: PANTOPRAZOLE SODIUM 40 MG VIAL IV PUSH SCH (09:33)
[2016-11-16] MEDS: POTASSIUM CHLOR 40 MEQ PREMIX 100 ML IV PRN ×2 (09:34→11:51)
[2016-11-16] MEDS: hydrALAZINE HCL 20 MG/ML VIAL IV PUSH PRN (09:44)
--- NOTE | 2016-11-16 12:20 | PD.ONC.PN ---
Subjective Subjective Remarks Afebrile overnight. Patient resting in bed. Continuing to have pain, "all over." Very fatigued. Objective Data Date Time Temp Pulse Resp B/P (MAP) Pulse Ox O2 Delivery O2 Flow Rate FiO2 11/16/16 09:50 22 11/16/16 08:15 95 Nasal Cannula 2.00 11/16/16 06:00 86 11/16/16 04:00 85 11/16/16 04:00 98.5 96 19 163/73 (103) 97 11/16/16 02:00 93 11/16/16 00:00 98.2 85 21 187/68 (107) 99 11/16/16 00:00 83 11/15/16 22:00 79 11/15/16 20:00 98.0 83 16 174/80 (111) 94 11/15/16 20:00 83 11/15/16 19:24 93 Nasal Cannula 2.00 11/15/16 18:00 86 11/15/16 16:00 98.0 92 16 197/81 (119) 95 11/15/16 16:00 86 11/15/16 14:00 86 11/16/16 11/16/16 11/16/16 06:59 14:59 22:59 Intake Total 240 ml 200 ml Balance 240 ml 200 ml Result Diagram: 11/16/16 0545 11/16/16 0545 Laboratory Results Laboratory Tests Test 11/15/16 14:44 11/16/16 05:45 Potassium Level 3.7 MEQ/L 3.1 MEQ/L White Blood Count 16.7 TH/MM3 Red Blood Count 4.21 MIL/MM3 Hemoglobin 11.5 GM/DL Hematocrit 35.7 % Mean Corpuscular Volume 84.9 FL Mean Corpuscular Hemoglobin 27.3 PG Mean Corpuscular Hemoglobin Concent 32.2 % Red Cell Distribution Width 17.4 % Platelet Count 435 TH/MM3 Mean Platelet Volume 7.0 FL Neutrophils (%) (Auto) 90.2 % Lymphocytes (%) (Auto) 4.4 % Monocytes (%) (Auto) 5.3 % Eosinophils (%) (Auto) 0.0 % Basophils (%) (Auto) 0.1 % Neutrophils # (Auto) 15.0 TH/MM3 Lymphocytes # (Auto) 0.7 TH/MM3 Monocytes # (Auto) 0.9 TH/MM3 Eosinophils # (Auto) 0.0 TH/MM3 Basophils # (Auto) 0.0 TH/MM3 CBC Comment DIFF FINAL Differential Comment Blood Urea Nitrogen 11 MG/DL Creatinine 0.56 MG/DL Random Glucose 109 MG/DL Calcium Level 9.6 MG/DL Sodium Level 140 MEQ/L Chloride Level 105 MEQ/L Carbon Dioxide Level 29.7 MEQ/L Anion Gap 5 MEQ/L Estimat Glomerular Filtration Rate 129 ML/MIN Culture Results Microbiology Date/Time Source Procedure Growth Status 11/14/16 15:40 Blood Peripheral Aerobic Blood Culture - Preliminary Gram Positive Cocci Resulted 11/14/16 15:40 Blood Peripheral Anaerobic Blood Culture - Preliminary NO GROWTH IN 2 DAYS Resulted 11/14/16 15:35 Blood Peripheral Aerobic Blood Culture - Preliminary NO GROWTH IN 2 DAYS Resulted 11/14/16 15:35 Blood Peripheral Anaerobic Blood Culture - Preliminary NO GROWTH IN 2 DAYS Resulted 11/15/16 10:30 Fluid Pleural Fluid Fungal Smear - Final NO FUNGAL ELEMENTS SEEN. Resulted 11/15/16 10:30 Fluid Pleural Fluid Fungal Culture Pending Resulted 11/15/16 10:30 Fluid Pleural Fluid Acid Fast Stain - Final NO ACID FAST BACILLI SEEN Resulted 11/15/16 10:30 Fluid Pleural Fluid Mycobacterial Culture Pending Resulted 11/15/16 10:30 Fluid Pleural Fluid Gram Stain - Final Resulted 11/15/16 10:30 Fluid Pleural Fluid Body Fluid Culture - Preliminary NO GROWTH IN 24 HOURS. Resulted Administered Medications Medications (Trade) Dose Ordered Sig/Maksim Route PRN Reason Start Time Stop Time Status Last Admin Dose Admin Pantoprazole Sodium (Protonix Inj) 40 mg DAILY IV PUSH 11/15/16 09:00 11/16/16 09:33 Albuterol/ Ipratropium (Duoneb Neb) 1 ampule Q4HR NEB INH 11/14/16 20:00 11/15/16 23:51 Senna/Docusate Sodium (Cherelle-Colace) 1 tab BID PO 11/14/16 21:00 11/16/16 09:00 Potassium Chloride 100 ml @ 50 mls/hr Q2H PRN IV For Potassium 2.8 - 3.2 mEq/L 11/14/16 17:00 11/16/16 11:51 Methylprednisolone Sodium Succinate (SoluMEDROL INJ) 40 mg Q8H IV PUSH 11/14/16 17:00 11/16/16 09:32 Hydralazine HCl (Apresoline Inj) 10 mg Q6H PRN IV PUSH SYS BP GREATER THAN 160 MMHG 11/15/16 10:30 11/16/16 09:44 Aztreonam 1000 mg/ Sodium Chloride 100 ml @ 200 mls/hr Q8H IV 11/15/16 11:00 11/16/16 09:44 Morphine Sulfate (Morphine Inj) 1 mg Q4H PRN IV PUSH pain 1-10 11/15/16 12:30 11/16/16 09:33 Heparin Sodium (Porcine) (Heparin Inj) 5,000 units Q12HR SQ 11/15/16 21:00 11/16/16 09:32 Objective Remarks GENERAL: Chronically ill, frail female lying in bed resting. SKIN: Warm and dry. HEAD: Normocephalic. EYES: No injection or drainage. NECK: Supple, trachea midline. CARDIOVASCULAR: +S1/S2, tachy RESPIRATORY: diminished breath sounds left lung landon. scattered rhonchi. On 2L O2 via NC GASTROINTESTINAL: Abdomen mildly distended EXTREMITIES: No cyanosis NEUROLOGICAL: awake but lethargic, normal speech Assessment/Plan Problem List: (1) Metastatic breast cancer ICD Codes: C50.919 - Malignant neoplasm of unspecified site of unspecified female breast Plan: --Metastatic breast cancer. --has back pain due to bone metastasis. --has right upper quadrant pain due to liver metastasis. --had history of bilateral breast cancer treated with neoadjuvant chemotherapy followed by bilateral mastectomy. --Tumor had positive hormone receptor and negative her2/ receptor. --January of 2012--received left chest wall radiation and was started on Anastrozole in --April of 2015--developed metastatic disease. Biopsy of the right chest wall mass showed invasive adenocarcinoma, triple negative. treated with Xeloda without clear response. --September of 2015-- started on weekly Taxol with good response. had some side effect with chemotherapy and decided to stop all treatment. --April of 2016--last seen in clinic --October 2016: presented with worsening dyspnea and CT Showed widespread metastatic disease in lung, liver and bone consistent with progression of disease. --if she wants to consider treatment, palliative chemotherapy will likely relieve some of her symptoms and prolong her survival. wants to talk to her daughter who lives in [place] first. (2) Malignant pleural effusion ICD Codes: J91.0 - Malignant pleural effusion Plan: --Malignant left pleural effusion. --She had thoracentesis October of 2015 with removal of 800mL of fluid. --has now reaccumulated and she had another 1.5 liters removed 11/15 (3) Leukocytosis ICD Codes: D72.829 - Elevated white blood cell count, unspecified Plan: --due to underlying infection. --currently on antibiotic. Assessment 71y/o female with widespread metastatic breast cancer admitted with dyspnea and cough. h/o Metastatic breast cancer Peripheral neuropathy. Left arm lymphedema Malignant pleural effusion. Osteopenia. Hyperlipidemia. Thyroid nodule. Plan 1. I had a long conversation with the patient's daughter Maria E at the patient's request. Reviewed patients diagnosis of metastatic breast cancer, extent of metastasis and current medical status during this admission. We discussed the patient decided to stop all treatments in April of this year and wanted to speak with her daughter before deciding whether to pursue additional treatments of perhaps hospice. Daughter indicated she feels hospice would be appropriate for her mother. Daughter and patient's brother are sharing [facility] responsibilities. I discussed with palliative care [employer] Tarah Hillman, we will set up meeting with both HCS, patient and hospice tomorrow. Daughter and patient were agreeable with this plan. 2. continue supportive care, pain management Attending Statement The exam, history, and the medical decision-making described in the above note were completed with the assistance of the mid-level provider. I reviewed and agree with the findings presented. I attest that I had a [id number] encounter with the patient on the same day, and personally performed and documented my assessment and findings in the medical record. Still weak and has diffuse pain. Pt is still undecided about treatment, she has not talk to her daughter yet. Will try to call her daughter. Palliative care meds is following. Consult hospice if pt decided on no further treatment. Alicia Jovel Nov 16, 2016 12:20 Jose Miguel Reed MD Nov 16, 2016 16:37
--- NOTE | 2016-11-16 12:29 | HHI.CCPN ---
Subjective Remarks/Hospital Course The patient is a 71-year-old female with a past medical history of breast cancer status post chemo and radiation therapy approximately 6 months ago presented to [facility] ED with a two month history of progressive worsening shortness of breath associated with cough. In addition she reports chest pain with coughing and deep inspiration. She denies any fever, chills or any constitutional symptoms. The patient reports edema of her left lower extremity. She also had some wheezing along with her shortness of breath. In the ER she was sating in the high 80s and tachypneic. She denies any use of home oxygen. Chest x-ray in the ER showed complete opacification of left hemithorax without any shift of the mediastinum, likely a large pleural effusion with associated volume loss. The patient is scheduled to undergo ultrasound-guided thoracentesis by IR and possible pigtail catheter placement. She had an ABG done on 2 liters oxygen which showed a pH of 7.47, CO2 41, pAO2 73, bicarb 30 and saturation 94%. The patient states that she had a previous thoracentesis done on the left lung over 6 months ago. She was found to have a white count of 12.1, however, she is afebrile. In the ED she was given vancomycin, scheduled to receive aztreonam and potassium supplements for a K level of 2.7. Her lactic acid level measured at 1.3. When seen in the ER she is on 2 liters oxygen with saturation 95-99% and blood pressure of 130/75 with a pulse of 85. 11/15 Patient s/p left CT guided thoracentesis/CT placement yesterday with removal 1550 ml. Awake on 2L oxygen hypertensive. 11/16: patient appears to be in moderate distress due to tachypnea and pain. Had bronchoscopy yesterday, with bronchial washings sent for cytology. No significant obstruction or mucus plugging. CT of the chest showed extensive metastatic disease along with dense consolidation involving almost entire left lung with small pneumothorax apically and small effusion Objective Vital Signs Date Time Temp Pulse Resp B/P (MAP) Pulse Ox O2 Delivery O2 Flow Rate FiO2 11/16/16 09:50 22 11/16/16 08:15 95 Nasal Cannula 2.00 11/16/16 06:00 86 11/16/16 04:00 98.5 163/73 (103) 11/14/16 19:57 21 Intake and Output 11/16/16 11/16/16 11/16/16 07:59 15:59 23:59 Intake Total 240 ml 200 ml Balance 240 ml 200 ml Result Diagram: 11/16/16 0545 11/16/16 0545 Imaging Last Impressions Chest X-Ray 11/15/16 0000 Signed Impressions: Service Date/Time: Tuesday, November 15, 2016 04:36 - CONCLUSION: Complete consolidation involving the left lung which is a new finding from the prior study with small area of parenchymal consolidation involving the medial right lung base. Kenneth Sifuentes Jr., MD Objective Remarks GENERAL: Patient is 71 yo lying in bed in moderate respiratory distress SKIN: Warm and dry. HEAD: Normocephalic. EYES: No scleral icterus. No injection or drainage. NECK: Supple, trachea midline. No JVD or lymphadenopathy. CARDIOVASCULAR: Regular rate and rhythm without murmurs, gallops, or rubs. RESPIRATORY: Diminished BS on left, coarse BS on right. L pigtail chest tube in place GASTROINTESTINAL: Abdomen soft, non-tender, nondistended. MUSCULOSKELETAL: No cyanosis, or edema. Neuro : Awake and alert. Follows commands A/P Assessment and Plan 1. Acute hypoxemic respiratory failure. 2. Dense consolidation of left lung 3. Large left pleural effusion s/p L pleural effusion 4. Hypokalemia. 5. Anemia. 6. Breast CA status post chemo and radiation therapy in the past. 7. Mild leukocytosis likely stress-related. Plan Neuro: Awake and alert. Monitor neuro status and avoid sedatives. Pulm: Continue with oxygen to maintain sats above 90%. Bronchodilators, Solu-Medrol 40 mg IV q.8. On prednisone 10 mg at home NIPPV PRN for resp distress s/p CT guided thoracentesis/CT placement- Monitor CT drainage. Check pleural fluid analysis/cx/cytology CT chest 11/15 extensive metastatic disease with extensive consolidation involving entire left lung, s/p bronchoscopy and BAL by Dr. Harmon. No evidence of mucus plugging or obstruction per his notes CV: Monitor HR and BP and maintain MAP>65 mmHg. 2D echo to eval LV function-pending : Monitor renal function, electrolyte replacement protocol. GI: On Protonix 40 mg daily. Heme: Monitor CBC. Consult oncology service.s/p chemo radiation treatment approximately 6 months ago for metastatic breast cancer Onc Dr. Reed. Palliative chemotherapy if patient agreeable-previously had refused further chemotherapy for the last 6 months. If nontreatment recommend hospice patient is undecided at this time Palliative care following ID: Monitor for signs of infections( fever and WBC). Received vancomycin and aztreonam in the ER. Continue with Aztreonam, follow up on BC from 11/14, check UA. Add Flagyl Endo: SSI with Accu-Cheks for glycemic control GI prophylaxis with Protonix 40 mg daily and DVT prophylaxis with SCDs. CCT 32 MIN Patient today in more moderate to severe respiratory distress. I will place on BiPAP. If not willing for palliative chemotherapy strongly recommend hospice. Overall poor prognosis. Continue ICU care Cyril Cannon MD Nov 16, 2016 12:28
--- NOTE | 2016-11-16 13:29 | RADRPT ---
EXAM DATE/TIME: 11/16/2016 13:03 [facility] COMPARISON: CHEST SINGLE AP, November 15, 2016, 10:38. INDICATIONS : Short of breath. MEDICAL HISTORY : Cardiovascular disease. Carcinoma, breast SURGICAL HISTORY : None. ENCOUNTER: Subsequent ACUITY: 2 days PAIN SCORE: 0/10 LOCATION: Bilateral chest FINDINGS: Chest tube remains on the left with dense consolidation in the left lung. [id number] is present o n the right. Mild interstitial edema persists. The heart is enlarged. CONCLUSION: Slight increase in amount of interstitial edema. Dense consolidation on left with chest tube in good position. Aquiles Stover MD FACR on November 16, 2016 at 13:27 Board Certified Radiologist. This report was verified electronically.
[2016-11-16] MEDS ORDERED: MORPHINE SULFATE 4 MG/ML INJ IV PUSH ONE (13:45)
--- NOTE | 2016-11-16 16:54 | HHI.PR ---
Subjective Remarks ALERT NO SOB Objective GENERAL: SKIN: Warm and dry. HEAD: Atraumatic. Normocephalic. EYES: Pupils equal and round. No scleral icterus. No injection or drainage. ENT: No nasal bleeding or discharge. Mucous membranes pink and moist. NECK: Trachea midline. No JVD. CARDIOVASCULAR: Regular rate and rhythm. RESPIRATORY: No accessory muscle use. Clear to auscultation. Breath sounds equal bilaterally. GASTROINTESTINAL: Abdomen soft, non-tender, nondistended. Hepatic and splenic margins not palpable. MUSCULOSKELETAL: Extremities without clubbing, cyanosis, or edema. No obvious deformities. NEUROLOGICAL: Awake and alert. No obvious cranial nerve deficits. Motor grossly within normal limits. Five out of 5 muscle strength in the arms and legs. Normal speech. PSYCHIATRIC: Appropriate mood and affect; insight and judgment normal. Vital Signs Date Time Temp Pulse Resp B/P (MAP) Pulse Ox O2 Delivery O2 Flow Rate FiO2 11/16/16 09:50 22 11/16/16 08:15 95 Nasal Cannula 2.00 11/16/16 06:00 86 11/16/16 04:00 85 11/16/16 04:00 98.5 96 19 163/73 (103) 97 11/16/16 02:00 93 11/16/16 00:00 98.2 85 21 187/68 (107) 99 11/16/16 00:00 83 11/15/16 22:00 79 11/15/16 20:00 98.0 83 16 174/80 (111) 94 11/15/16 20:00 83 11/15/16 19:24 93 Nasal Cannula 2.00 11/15/16 18:00 86 I/O 11/15/16 11/15/16 11/15/16 11/16/16 11/16/16 11/16/16 07:00 15:00 23:00 07:00 15:00 23:00 Intake Total 956 ml 849 ml 240 ml 200 ml Output Total 1770 ml 800 ml Balance -814 ml 49 ml 240 ml 200 ml Intake Oral 480 ml 240 ml 240 ml IV Total 476 ml 609 ml 200 ml Output Urine Total 800 ml Chest Tube Drainage Total 1770 ml # Voids 1 4 0 # Bowel Movements 1 0 Result Diagram: 11/16/16 0545 11/16/16 0545 Assessment and Plan Assessment and Plan METASTATIC BREAST CA PLEURAL EFFUSION VOLODYMYR' OE NEEDED ANTIBIOTIC THERAPY OUTLOOK POOR Geovanna Austin MD Nov 16, 2016 16:54
--- NOTE | 2016-11-16 17:05 | ECHRPT ---
Indication: eval EF r/o PE CONCLUSIONS The left ventricular systolic function is normal with an estimated ejection fraction in the range of 65-70%. Normal left ventricular size. Wall thickness is normal. No regional wall motion abnormalities are present. Calcification of the non-coronary cusp. There is trace tricuspid valve regurgitation. Mild pulmonary hypertension. The estimated pulmonary arterial pressure is 45 mmHg. There is trace pericardial effussion. BP: 138 / 65 HR: 86 Rhythm: Other MEASUREMENTS (Male / Female) Normal Values Technical Quality:Fair 2D ECHO LV Diastolic Diameter PLAX 3.2 cm 4.2 - 5.9 / 3.9 - 5.3 cm LV Systolic Diameter PLAX 2.1 cm IVS Diastolic Thickness 0.9 cm 0.6 - 1.0 / 0.6 - 0.9 cm LVPW Diastolic Thickness 1.0 cm 0.6 - 1.0 / 0.6 - 0.9 cm LV Relative Wall Thickness 0.6 RV Internal Dim ED PLAX 2.2 cm LVOT Diameter 1.9 cm LA Systolic Diameter LX 2.6 cm 3.0 - 4.0 / 2.7 - 3.8 cm M-MODE Aortic Root Diameter MM 2.8 cm AV Cusp Separation MM 1.9 cm DOPPLER TR Peak Velocity 297.0 cm/s TR Peak Gradient 35.3 mmHg Right Atrial Pressure 10.0 mmHg Pulmonary Artery Systolic Pressu 45.3 mmHg Right Ventricular Systolic Press 45.3 mmHg PV Peak Velocity 96.4 cm/s PV Peak Gradient 3.7 mmHg FINDINGS LEFT VENTRICLE The left ventricular systolic function is normal with an estimated ejection fraction in the range of 65-70%. Normal left ventricular size. Wall thickness is normal. No regional wall motion abnormalities are present. RIGHT VENTRICLE The right ventricle was not well visualized. LEFT ATRIUM The left atrial size is normal. RIGHT ATRIUM The right atrium is not well visualized. ATRIAL SEPTUM The interatrial septum not well visualized. AORTA The aortic root and proximal ascending aorta are normal in size on limited imaging. MITRAL VALVE Structurally normal mitral valve. No mitral valve stenosis or regurgitation. AORTIC VALVE Calcification of the non-coronary cusp. TRICUSPID VALVE There is trace tricuspid valve regurgitation. The estimated pulmonary arterial pressure is 45.3 mmHg. PULMONARY VALVE The pulmonary valve is not well visualized. VESSELS The inferior vena cava is normal in size. PERICARDIUM There is trace pericardial effussion. Kam Carrasco MD, FACC (Electronically Signed) Final Date:16 November 2016 17:04
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
[2016-11-17] VITALS (10 sets, daily range): BP systolic 152–171; BP diastolic 68–97; PULSE 80–105; RESP 18–25; TEMP 97.7–99; O2SAT 96–97
[2016-11-17] MEDS: methylPREDNISolone SOD SUCC 40 MG/1 ML VIAL IV PUSH SCH ×2 (00:36→09:33)
[2016-11-17] MEDS: INSULIN NovoLIN REGULAR SUPPLEMENTAL SCALE SQ SCH ×4 (00:36→12:46)
[2016-11-17] MEDS: MORPHINE SULFATE 4 MG/ML INJ IV PUSH PRN ×4 (00:37→14:22)
[2016-11-17] MEDS: AZTREONAM INJ 1,000 MG in SODIUM CHLORIDE 0.9% INJ 100 ML IV SCH ×2 (03:00→11:00)
[2016-11-17] MEDS: RESP: ALBUTEROL 2.5 MG/IPRATROPIUM 0.5 MG NEB (SCH) INH ×4 (03:39→15:09)
[2016-11-17] MEDS: CHLORHEXIDINE GLUCONATE 2 % 1 PACK (2 CLOTHS) TOP SCH (04:00)
[2016-11-17] MEDS: DOCUSATE SODIUM 50 MG/SENNA 8.6 MG TAB PO SCH (09:33)
[2016-11-17] MEDS: PANTOPRAZOLE SODIUM 40 MG VIAL IV PUSH SCH (09:34)
[2016-11-17] MEDS: HEPARIN SODIUM - SQ 10,000 UNITS/ML VIAL SQ SCH (09:34)
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
--- NOTE | 2016-11-17 13:17 | PD.ONC.PN ---
Subjective Subjective Remarks Afebrile overnight. patient resting comfortably in bed in nad. Objective Data Date Time Temp Pulse Resp B/P (MAP) Pulse Ox O2 Delivery O2 Flow Rate FiO2 11/17/16 10:00 80 11/17/16 09:40 22 11/17/16 08:00 97.7 95 23 158/74 (102) 97 11/17/16 08:00 95 11/17/16 07:21 96 Nasal Cannula 2.00 11/17/16 06:00 93 11/17/16 04:00 105 11/17/16 04:00 98.3 93 18 171/97 (121) 96 11/17/16 02:00 83 11/17/16 00:00 98.8 100 25 152/79 (103) 97 11/17/16 00:00 100 11/16/16 22:00 93 11/16/16 20:02 98 Nasal Cannula 2.00 11/16/16 20:00 98.6 103 31 154/77 (102) 94 11/16/16 20:00 103 11/16/16 18:00 96 11/16/16 16:00 98.5 86 26 167/77 (107) 98 11/16/16 16:00 86 11/16/16 14:00 94 11/17/16 11/17/16 11/17/16 07:00 15:00 23:00 Intake Total 300 ml Balance 300 ml Result Diagram: 11/16/16 0545 11/17/16 0326 Laboratory Results Laboratory Tests Test 11/17/16 03:26 Potassium Level 3.5 MEQ/L Culture Results Microbiology Date/Time Source Procedure Growth Status 11/14/16 15:40 Blood Peripheral Aerobic Blood Culture - Preliminary Staph Sp Coagulase Negative Resulted 11/14/16 15:40 Blood Peripheral Anaerobic Blood Culture - Preliminary NO GROWTH IN 3 DAYS Resulted 11/14/16 15:35 Blood Peripheral Aerobic Blood Culture - Preliminary NO GROWTH IN 3 DAYS Resulted 11/14/16 15:35 Blood Peripheral Anaerobic Blood Culture - Preliminary NO GROWTH IN 3 DAYS Resulted 11/15/16 10:30 Fluid Pleural Fluid Fungal Smear - Final NO FUNGAL ELEMENTS SEEN. Resulted 11/15/16 10:30 Fluid Pleural Fluid Fungal Culture Pending Resulted 11/15/16 10:30 Fluid Pleural Fluid Acid Fast Stain - Final NO ACID FAST BACILLI SEEN Resulted 11/15/16 10:30 Fluid Pleural Fluid Mycobacterial Culture Pending Resulted 11/15/16 10:30 Fluid Pleural Fluid Gram Stain - Final Resulted 11/15/16 10:30 Fluid Pleural Fluid Body Fluid Culture - Preliminary Resulted Administered Medications Medications (Trade) Dose Ordered Sig/Maksim Route PRN Reason Start Time Stop Time Status Last Admin Dose Admin Pantoprazole Sodium (Protonix Inj) 40 mg DAILY IV PUSH 11/15/16 09:00 11/17/16 09:34 Albuterol/ Ipratropium (Duoneb Neb) 1 ampule Q4HR NEB INH 11/14/16 20:00 11/17/16 11:28 Chlorhexidine Gluconate (Chlorhexidine 2% Cloth) 3 pack Taper DAILY@04 TOP 11/15/16 04:00 11/11/17 03:59 11/17/16 04:00 Senna/Docusate Sodium (Cherelle-Colace) 1 tab BID PO 11/14/16 21:00 11/17/16 09:33 Potassium Chloride 100 ml @ 50 mls/hr Q2H PRN IV For Potassium 2.8 - 3.2 mEq/L 11/14/16 17:00 11/16/16 11:51 Methylprednisolone Sodium Succinate (SoluMEDROL INJ) 40 mg Q8H IV PUSH 11/14/16 17:00 11/17/16 09:33 Hydralazine HCl (Apresoline Inj) 10 mg Q6H PRN IV PUSH SYS BP GREATER THAN 160 MMHG 11/15/16 10:30 11/16/16 09:44 Aztreonam 1000 mg/ Sodium Chloride 100 ml @ 200 mls/hr Q8H IV 11/15/16 11:00 11/17/16 11:00 Heparin Sodium (Porcine) (Heparin Inj) 5,000 units Q12HR SQ 11/15/16 21:00 11/17/16 09:34 Morphine Sulfate (Morphine Inj) 1 mg Q2H PRN IV PUSH pain 1-10 11/16/16 13:45 11/17/16 09:34 Objective Remarks GENERAL: Chronically ill female lying in bed resting. Brother at bedside SKIN: Warm and dry. HEAD: Normocephalic. EYES: No injection or drainage. NECK: Supple, trachea midline. CARDIOVASCULAR: +S1/S2, tachy RESPIRATORY: anterior landon with scattered rhonchi. on 2L O2 via NC GASTROINTESTINAL: Abdomen mildly distended EXTREMITIES: No cyanosis NEUROLOGICAL: awake and alert, normal speech Assessment/Plan Problem List: (1) Metastatic breast cancer ICD Codes: C50.919 - Malignant neoplasm of unspecified site of unspecified female breast Status: Acute Plan: --Metastatic breast cancer. --has back pain due to bone metastasis. --has right upper quadrant pain due to liver metastasis. --had history of bilateral breast cancer treated with neoadjuvant chemotherapy followed by bilateral mastectomy. --Tumor had positive hormone receptor and negative her2/ receptor. History: --January of 2012--received left chest wall radiation and was started on Anastrozole in --April of 2015--developed metastatic disease. Biopsy of the right chest wall mass showed invasive adenocarcinoma, triple negative. treated with Xeloda without clear response. --September of 2015-- started on weekly Taxol with good response. had some side effect with chemotherapy and decided to stop all treatment. --April of 2016--last seen in clinic --October 2016: presented with worsening dyspnea and CT Showed widespread metastatic disease in lung, liver and bone consistent with progression of disease. (2) Malignant pleural effusion ICD Codes: J91.0 - Malignant pleural effusion Status: Acute Plan: --Malignant left pleural effusion. --She had thoracentesis October of 2015 with removal of 800mL of fluid. --has now reaccumulated and she had another 1.5 liters removed 11/15 (3) Leukocytosis ICD Codes: D72.829 - Elevated white blood cell count, unspecified Status: Acute Plan: --due to underlying infection. --currently on antibiotic. Assessment 71y/o female with widespread metastatic breast cancer admitted with dyspnea and cough. h/o Metastatic breast cancer Peripheral neuropathy. Left arm lymphedema Malignant pleural effusion. Osteopenia. Hyperlipidemia. Thyroid nodule. Plan 1. continue supportive care 2. patient and patient's HCS, Brother and daughter have decided on hospice. Attending Statement The exam, history, and the medical decision-making described in the above note were completed with the assistance of the mid-level provider. I reviewed and agree with the findings presented. I attest that I had a [id number] encounter with the patient on the same day, and personally performed and documented my assessment and findings in the medical record. Still has SOB. Slightly confused. Family has decided not to have aggressive tx and wanted hospice support which is appropriate for this patient. Alicia Jovel Nov 17, 2016 13:17 Jose Miguel Reed MD Nov 17, 2016 16:25
--- NOTE | 2016-11-17 14:19 | HHI.DS ---
Discharge Summary Admission Date Nov 14, 2016 at 16:42 Discharge Date: Nov 17, 2016 Admitting Diagnosis respiratory distress, large pleural effusion, hypoxia (1) Metastatic breast cancer ICD Code: C50.919 - Malignant neoplasm of unspecified site of unspecified female breast Diagnosis: Principal Status: Acute (2) Malignant pleural effusion ICD Code: J91.0 - Malignant pleural effusion Diagnosis: Principal Status: Acute (3) Leukocytosis ICD Code: D72.829 - Elevated white blood cell count, unspecified Diagnosis: Principal Status: Acute (4) Metastatic cancer to spine ICD Code: C79.51 - Secondary malignant neoplasm of bone Diagnosis: Principal Status: Acute (5) Hypertension ICD Code: I10 - Essential (primary) hypertension Status: Acute (6) hx breast cancer with bilat mastectomy Status: Acute Procedures Left pigtail chest tube placement. Removed 11/17 Brief History The patient is a 71-year-old female with a past medical history of breast cancer status post chemo and radiation therapy approximately 6 months ago presented to [facility] ED with a two month history of progressive worsening shortness of breath associated with cough. In addition she reports chest pain with coughing and deep inspiration. She denies any fever, chills or any constitutional symptoms. The patient reports edema of her left lower extremity. She also had some wheezing along with her shortness of breath. In the ER she was sating in the high 80s and tachypneic. She denies any use of home oxygen. Chest x-ray in the ER showed complete opacification of left hemithorax without any shift of the mediastinum, likely a large pleural effusion with associated volume loss. The patient is scheduled to undergo ultrasound-guided thoracentesis by IR and possible pigtail catheter placement. She had an ABG done on 2 liters oxygen which showed a pH of 7.47, CO2 41, pAO2 73, bicarb 30 and saturation 94%. The patient states that she had a previous thoracentesis done on the left lung over 6 months ago. She was found to have a white count of 12.1, however, she is afebrile. In the ED she was given vancomycin, scheduled to receive aztreonam and potassium supplements for a K level of 2.7. Her lactic acid level measured at 1.3. When seen in the ER she is on 2 liters oxygen with saturation 95-99% and blood pressure of 130/75 with a pulse of 85. CBC/BMP: 11/16/16 0545 11/17/16 0326 Significant Findings Laboratory Tests Test 11/14/16 15:13 11/14/16 15:40 11/14/16 15:50 11/14/16 16:30 Blood Gas HCO3 30 mmol/L (22-26) Blood Gas Base Excess 6.0 mmol/L (-2-2) Arterial Blood pH 7.47 (7.380-7.420) Blood Gas Hemoglobin 11.5 G/DL (12.0-16.0) White Blood Count 12.1 TH/MM3 (4.0-11.0) Red Blood Count 3.92 MIL/MM3 (4.00-5.30) Hemoglobin 10.7 GM/DL (11.6-15.3) Hematocrit 33.5 % (35.0-46.0) Mean Corpuscular Hemoglobin Concent 31.9 % (32.0-36.0) Red Cell Distribution Width 17.3 % (11.6-17.2) Platelet Count 479 TH/MM3 (150-450) Mean Platelet Volume 6.8 FL (7.0-11.0) Neutrophils (%) (Auto) 75.7 % (16.0-70.0) Monocytes (%) (Auto) 10.2 % (0.0-8.0) Neutrophils # (Auto) 9.2 TH/MM3 (1.8-7.7) Monocytes # (Auto) 1.2 TH/MM3 (0-0.9) Albumin 3.0 GM/DL (3.4-5.0) Alkaline Phosphatase 183 U/L (45-117) Potassium Level 2.7 MEQ/L (3.5-5.1) Phosphorus Level 2.3 MG/DL (2.5-4.9) Troponin I LESS THAN 0.02 NG/ML Test 11/14/16 18:30 11/15/16 04:40 11/15/16 10:30 11/15/16 14:44 White Blood Count 17.1 TH/MM3 (4.0-11.0) Red Blood Count 3.95 MIL/MM3 (4.00-5.30) Hemoglobin 10.7 GM/DL (11.6-15.3) Hematocrit 33.5 % (35.0-46.0) Platelet Count 458 TH/MM3 (150-450) Mean Platelet Volume 6.9 FL (7.0-11.0) Neutrophils (%) (Auto) 83.5 % (16.0-70.0) Neutrophils # (Auto) 14.3 TH/MM3 (1.8-7.7) Monocytes # (Auto) 1.2 TH/MM3 (0-0.9) Albumin 2.5 GM/DL (3.4-5.0) Phosphorus Level 2.4 MG/DL (2.5-4.9) Alkaline Phosphatase 178 U/L (45-117) Potassium Level 2.9 MEQ/L (3.5-5.1) Pleural Fluid WBC 200 /MM3 (0-10) Pleural Fluid RBC 78163 /MM3 (0-0) Test 11/16/16 05:45 11/17/16 03:26 White Blood Count 16.7 TH/MM3 (4.0-11.0) Hemoglobin 11.5 GM/DL (11.6-15.3) Red Cell Distribution Width 17.4 % (11.6-17.2) Neutrophils (%) (Auto) 90.2 % (16.0-70.0) Lymphocytes (%) (Auto) 4.4 % (9.0-44.0) Neutrophils # (Auto) 15.0 TH/MM3 (1.8-7.7) Lymphocytes # (Auto) 0.7 TH/MM3 (1.0-4.8) Random Glucose 109 MG/DL (74-106) Potassium Level 3.1 MEQ/L (3.5-5.1) Imaging Last Impressions Chest X-Ray 11/16/16 0000 Signed Impressions: Service Date/Time: Wednesday, November 16, 2016 13:03 - CONCLUSION: Slight increase in amount of interstitial edema. Dense consolidation on left with chest tube in good position. Aquiles Stover MD FACR Chest CT 11/15/16 0000 Signed Impressions: Service Date/Time: Tuesday, November 15, 2016 11:28 - CONCLUSION: 1. Widespread metastatic disease involving the lungs, liver and bony structures of the thorax as above. 2. Dense consolidation and atelectasis of almost the entire left lung with residual small left effusion and small left pneumothorax with a small caliber left chest tube present. 3. Pathologic fractures of T9 and T6 with moderate compression. Marlo Mckeon MD Chest Tube Insertion 11/14/16 0000 Signed Impressions: Service Date/Time: Monday, November 14, 2016 17:28 - CONCLUSION: Uncomplicated CT-guided thoracentesis with chest tube insertion. Loy Hopson MD PE at Discharge GENERAL: 71-year-old female, resting in bed in no acute distress SKIN: Warm and dry. HEAD: Atraumatic. Normocephalic. EYES: Pupils equal and round. No scleral icterus. No injection or drainage. ENT: No nasal bleeding or discharge. Mucous membranes pink and moist. NECK: Trachea midline. No JVD. CARDIOVASCULAR: Regular rate and rhythm. S1, S2. No S4. RESPIRATORY: Diminished breath sounds left lower extremity GASTROINTESTINAL: Abdomen soft, non-tender, nondistended. Hepatic and splenic margins not palpable. MUSCULOSKELETAL: Extremities with the left upper extremity edema, right Port-A- Cath accessed NEUROLOGICAL: Awake and alert. No obvious cranial nerve deficits. Motor grossly within normal limits. Five out of 5 muscle strength in the arms and legs. Normal speech. Transfer Summary Assessment and Plan 1. Acute hypoxemic respiratory failure. 2. Dense consolidation of left lung 3. Large left pleural effusion s/p L pleural effusion 4. Hypokalemia. 5. Anemia. 6. Breast CA status post chemo and radiation therapy in the past. 7. Mild leukocytosis likely stress-related. Plan Neuro: Awake and alert. Monitor neuro status and avoid sedatives. Pulm: Continue with oxygen to maintain sats above 90%. Bronchodilators, Solu-Medrol 40 mg IV q.8. On prednisone 10 mg at home NIPPV PRN for resp distress s/p CT guided thoracentesis/CT placement- Monitor CT drainage. Check pleural fluid analysis/cx/cytology CT chest 11/15 extensive metastatic disease with extensive consolidation involving entire left lung, s/p bronchoscopy and BAL by Dr. Harmon. No evidence of mucus plugging or obstruction per his notes CV: Monitor HR and BP and maintain MAP>65 mmHg. 2D echo to eval LV function-pending : Monitor renal function, electrolyte replacement protocol. GI: On Protonix 40 mg daily. Heme: Monitor CBC. Consult oncology service.s/p chemo radiation treatment approximately 6 months ago for metastatic breast cancer Onc Dr. Reed. Palliative chemotherapy if patient agreeable-previously had refused further chemotherapy for the last 6 months. If nontreatment recommend hospice patient is undecided at this time Palliative care following ID: Monitor for signs of infections( fever and WBC). Received vancomycin and aztreonam in the ER. Continue with Aztreonam, follow up on BC from 11/14, check UA. Add Flagyl Endo: SSI with Accu-Cheks for glycemic control GI prophylaxis with Protonix 40 mg daily and DVT prophylaxis with SCDs. All medications were discontinued. Patient is transferred to [facility] today. Left pigtail chest tube removed Hospital Course The patient is a 71-year-old female with a past medical history of breast cancer status post chemo and radiation therapy approximately 6 months ago presented to [facility] ED with a two month history of progressive worsening shortness of breath associated with cough. In addition she reports chest pain with coughing and deep inspiration. She denies any fever, chills or any constitutional symptoms. The patient reports edema of her left lower extremity. She also had some wheezing along with her shortness of breath. In the ER she was sating in the high 80s and tachypneic. She denies any use of home oxygen. Chest x-ray in the ER showed complete opacification of left hemithorax without any shift of the mediastinum, likely a large pleural effusion with associated volume loss. The patient is scheduled to undergo ultrasound-guided thoracentesis by IR and possible pigtail catheter placement. She had an ABG done on 2 liters oxygen which showed a pH of 7.47, CO2 41, pAO2 73, bicarb 30 and saturation 94%. The patient states that she had a previous thoracentesis done on the left lung over 6 months ago. She was found to have a white count of 12.1, however, she is afebrile. In the ED she was given vancomycin, scheduled to receive aztreonam and potassium supplements for a K level of 2.7. Her lactic acid level measured at 1.3. When seen in the ER she is on 2 liters oxygen with saturation 95-99% and blood pressure of 130/75 with a pulse of 85. 11/15 Patient s/p left CT guided thoracentesis/CT placement yesterday with removal 1550 ml. Awake on 2L oxygen hypertensive. 11/16: patient appears to be in moderate distress due to tachypnea and pain. Had bronchoscopy yesterday, with bronchial washings sent for cytology. No significant obstruction or mucus plugging. CT of the chest showed extensive metastatic disease along with dense consolidation involving almost entire left lung with small pneumothorax apically and small effusion 11/17 - patient left chest tube removed. Plan for hospice today. Pt Condition on Discharge: Good Discharge Disposition: Hospice/Med Facility Discharge Instructions DIET: Follow Instructions for: As Tolerated, No Restrictions Activities you can perform: Continue Bedrest Chris Castillo MD Nov 17, 2016 14:19
--- NOTE | 2016-11-17 14:49 | HHI.CCPN ---
Subjective Remarks/Hospital Course The patient is a 71-year-old female with a past medical history of breast cancer status post chemo and radiation therapy approximately 6 months ago presented to [facility] ED with a two month history of progressive worsening shortness of breath associated with cough. In addition she reports chest pain with coughing and deep inspiration. She denies any fever, chills or any constitutional symptoms. The patient reports edema of her left lower extremity. She also had some wheezing along with her shortness of breath. In the ER she was sating in the high 80s and tachypneic. She denies any use of home oxygen. Chest x-ray in the ER showed complete opacification of left hemithorax without any shift of the mediastinum, likely a large pleural effusion with associated volume loss. The patient is scheduled to undergo ultrasound-guided thoracentesis by IR and possible pigtail catheter placement. She had an ABG done on 2 liters oxygen which showed a pH of 7.47, CO2 41, pAO2 73, bicarb 30 and saturation 94%. The patient states that she had a previous thoracentesis done on the left lung over 6 months ago. She was found to have a white count of 12.1, however, she is afebrile. In the ED she was given vancomycin, scheduled to receive aztreonam and potassium supplements for a K level of 2.7. Her lactic acid level measured at 1.3. When seen in the ER she is on 2 liters oxygen with saturation 95-99% and blood pressure of 130/75 with a pulse of 85. 11/15 Patient s/p left CT guided thoracentesis/CT placement yesterday with removal 1550 ml. Awake on 2L oxygen hypertensive. 11/16: patient appears to be in moderate distress due to tachypnea and pain. Had bronchoscopy yesterday, with bronchial washings sent for cytology. No significant obstruction or mucus plugging. CT of the chest showed extensive metastatic disease along with dense consolidation involving almost entire left lung with small pneumothorax apically and small effusion 11/17 - patient left chest tube removed. Plan for hospice today. Objective Vital Signs Date Time Temp Pulse Resp B/P (MAP) Pulse Ox O2 Delivery O2 Flow Rate FiO2 11/17/16 10:00 80 11/17/16 09:40 22 11/17/16 08:00 97.7 158/74 (102) 97 11/17/16 07:21 Nasal Cannula 2.00 11/14/16 19:57 21 Intake and Output 11/17/16 11/17/16 11/18/16 08:00 16:00 00:00 Intake Total 300 ml Balance 300 ml Result Diagram: 11/16/16 0545 11/17/16 0326 Imaging Last Impressions Chest X-Ray 11/15/16 0000 Signed Impressions: Service Date/Time: Tuesday, November 15, 2016 04:36 - CONCLUSION: Complete consolidation involving the left lung which is a new finding from the prior study with small area of parenchymal consolidation involving the medial right lung base. Kenneth Sifuentes Jr., MD Objective Remarks GENERAL: Patient is 71 yo lying in bed in moderate respiratory distress SKIN: Warm and dry. HEAD: Normocephalic. EYES: No scleral icterus. No injection or drainage. NECK: Supple, trachea midline. No JVD or lymphadenopathy. CARDIOVASCULAR: Regular rate and rhythm without murmurs, gallops, or rubs. RESPIRATORY: Diminished BS on left, coarse BS on right. L pigtail chest tube in place GASTROINTESTINAL: Abdomen soft, non-tender, nondistended. MUSCULOSKELETAL: No cyanosis, or edema. Neuro : Awake and alert. Follows commands Procedures Left pigtail chest tube placement. Removed 11/17 A/P Assessment and Plan 1. Acute hypoxemic respiratory failure. 2. Dense consolidation of left lung 3. Large left pleural effusion s/p L pleural effusion 4. Hypokalemia. 5. Anemia. 6. Breast CA status post chemo and radiation therapy in the past. 7. Mild leukocytosis likely stress-related. Plan Neuro: Awake and alert. Monitor neuro status and avoid sedatives. Pulm: Continue with oxygen to maintain sats above 90%. Bronchodilators, Solu-Medrol 40 mg IV q.8. On prednisone 10 mg at home NIPPV PRN for resp distress s/p CT guided thoracentesis/CT placement- Monitor CT drainage. Check pleural fluid analysis/cx/cytology CT chest 11/15 extensive metastatic disease with extensive consolidation involving entire left lung, s/p bronchoscopy and BAL by Dr. Harmon. No evidence of mucus plugging or obstruction per his notes CV: Monitor HR and BP and maintain MAP>65 mmHg. 2D echo to eval LV function-pending : Monitor renal function, electrolyte replacement protocol. GI: On Protonix 40 mg daily. Heme: Monitor CBC. Consult oncology service.s/p chemo radiation treatment approximately 6 months ago for metastatic breast cancer Onc Dr. Reed. Palliative chemotherapy if patient agreeable-previously had refused further chemotherapy for the last 6 months. If nontreatment recommend hospice patient is undecided at this time Palliative care following ID: Monitor for signs of infections( fever and WBC). Received vancomycin and aztreonam in the ER. Continue with Aztreonam, follow up on BC from 11/14, check UA. Add Flagyl Endo: SSI with Accu-Cheks for glycemic control GI prophylaxis with Protonix 40 mg daily and DVT prophylaxis with SCDs. CCT 32 MIN Patient today in more moderate to severe respiratory distress. I will place on BiPAP. If not willing for palliative chemotherapy strongly recommend hospice. Overall poor prognosis. Continue ICU care Chris Castillo MD Nov 17, 2016 14:49
--- NOTE | 2016-11-17 15:47 | HHI.PR ---
Subjective Remarks ALERT NO SOB Objective Vital Signs Date Time Temp Pulse Resp B/P (MAP) Pulse Ox O2 Delivery O2 Flow Rate FiO2 11/17/16 14:27 22 11/17/16 14:00 88 11/17/16 12:00 89 11/17/16 12:00 99.0 89 22 158/68 (98) 96 11/17/16 10:00 80 11/17/16 08:00 97.7 95 23 158/74 (102) 97 11/17/16 08:00 95 11/17/16 07:21 96 Nasal Cannula 2.00 11/17/16 06:00 93 11/17/16 04:00 105 11/17/16 04:00 98.3 93 18 171/97 (121) 96 11/17/16 02:00 83 11/17/16 00:00 98.8 100 25 152/79 (103) 97 11/17/16 00:00 100 11/16/16 22:00 93 11/16/16 20:02 98 Nasal Cannula 2.00 11/16/16 20:00 98.6 103 31 154/77 (102) 94 11/16/16 20:00 103 11/16/16 18:00 96 11/16/16 16:00 98.5 86 26 167/77 (107) 98 11/16/16 16:00 86 I/O 11/16/16 11/16/16 11/16/16 11/17/16 11/17/16 11/17/16 07:00 15:00 23:00 07:00 15:00 23:00 Intake Total 240 ml 200 ml 460 ml 300 ml Output Total 62 ml Balance 240 ml 200 ml 398 ml 300 ml Intake Oral 240 ml 360 ml 100 ml IV Total 200 ml 100 ml 200 ml Chest Tube Drainage Total 62 ml # Voids 0 3 3 # Bowel Movements 0 1 Result Diagram: 11/16/16 0545 11/17/16 0326 Objective Remarks GENERAL: SKIN: Warm and dry. HEAD: Atraumatic. Normocephalic. EYES: Pupils equal and round. No scleral icterus. No injection or drainage. ENT: No nasal bleeding or discharge. Mucous membranes pink and moist. NECK: Trachea midline. No JVD. CARDIOVASCULAR: Regular rate and rhythm. RESPIRATORY: No accessory muscle use. Clear to auscultation. Breath sounds equal bilaterally. GASTROINTESTINAL: Abdomen soft, non-tender, nondistended. Hepatic and splenic margins not palpable. MUSCULOSKELETAL: Extremities without clubbing, cyanosis, or edema. No obvious deformities. NEUROLOGICAL: Awake and alert. No obvious cranial nerve deficits. Motor grossly within normal limits. Five out of 5 muscle strength in the arms and legs. Normal speech. PSYCHIATRIC: Appropriate mood and affect; insight and judgment normal. Assessment and Plan Assessment and Plan METASTATIC BREAST CA PLEURAL EFFUSION VOLODYMYR' OE NEEDED ANTIBIOTIC THERAPY OUTLOOK POOR Geovanna Austin MD Nov 17, 2016 15:47
== END 2016-11-17 17:23 | disposition hospice, inpatient (51) | DRG 166 ==
LOC: NEPD 14:40 → NEDA 16:42 → HIMN 18:15
PROVIDERS: ADMIT Internal Medicine Critical Care Medicine; ATTEND Internal Medicine Critical Care Medicine
PROC: 0W9B30Z Drainage of Left Pleural Cavity with Drainage Device, Percutaneous Approach (ICD-10-PCS; principal; 2016-11-14)
PROC: 0BBF8ZX Excision of Right Lower Lung Lobe, Via Natural or Artificial Opening Endoscopic, Diagnostic (ICD-10-PCS; 2016-11-15)
DX: C78.02 Secondary malignant neoplasm of left lung (principal); J96.01 Acute respiratory failure with hypoxia; J91.0 Malignant pleural effusion; C78.7 Secondary malignant neoplasm of liver and intrahepatic bile duct; C79.51 Secondary malignant neoplasm of bone; G62.9 Polyneuropathy, unspecified; Z85.3 Personal history of malignant neoplasm of breast; I10 Essential (primary) hypertension; J45.909 Unspecified asthma, uncomplicated; K21.9 Gastro-esophageal reflux disease without esophagitis; Z87.891 Personal history of nicotine dependence; E87.6 Hypokalemia; D64.9 Anemia, unspecified; I25.10 Atherosclerotic heart disease of native coronary artery without angina pectoris; Z51.5 Encounter for palliative care; E78.5 Hyperlipidemia, unspecified; G89.3 Neoplasm related pain (acute) (chronic); Z78.1 Physical restraint status; Z66 Do not resuscitate
CPT/HCPCS: 32557; 36600; 71010; 71260; 80048; 80053; 82150; 82805; 82945; 82948; 83605; 83615; 83735; 83880; 83986; 84100; 84132; 84157; 84484; 85025; 85610; 86403; 87015; 87040; 87070; 87077; 87102; 87116; 87186; 87205; 87206; 87641; 88112; 88305; 89051; 93005; 93306; 94150; 94640; 94664; 96374; 99152; 99153; C1729; C1769; C9113; J0360; J1644; J1940; J2250; J2270; J2920; J2930; J3010; J3370; J3480; J7050; J7613; Q9967